=== PATIENT | female | born 1955 | race Caucasian/White ===

== ENCOUNTER 2018-12-14 16:13 | Inpatient (IN) | payer MEDICAID ==
[~2018-12-14] VITALS: Ht 165.1 cm; Wt 59.4 kg
[2018-12-14 16:37] VITALS: Ht 165.1 cm; Wt 59.4 kg
[2018-12-14 18:23] LABS: ALKALINE PHOSPHATASE 94 U/L (46-116); ALT/SGPT 47 U/L (14-59); AST/SGOT 130 U/L (15-37); BILIRUBIN TOTAL 0.62 mg/dL (0.20-1.00); CALCIUM 7.5 mg/dL (8.5-10.1); CHLORIDE SERUM 89 mmol/L (98-107); CREATININE SERUM 3.9 mg/dL (0.6-1.0); GFR1 12 mL/min; SODIUM SERUM 131 mmol/L (136-145)
[2018-12-14 18:24] LABS: ALBUMIN 2.6 g/dL (3.4-5.0); TOTAL PROTEIN, SERUM 5.4 g/dL (6.4-8.2)
[2018-12-14 18:49] LABS: PLATELET COUNT 268 x10^3mcL (130-400)
[2018-12-14 19:05] LABS: CARBON DIOXIDE 6.4 mmol/L (21-32)
[2018-12-14 19:06] LABS: GLUCOSE SERUM 1094 mg/dL (74-106)
[2018-12-14 19:29] LABS: BAND NEUTROPHIL 11 % (0-10); MONOCYTE 5 % (0-7); SEGMENTED NEUTROPHILS 78 % (37-75)
[2018-12-14 19:31] LABS: rbc morphology (normal/abnorm) ABNORMAL (NORMAL)
[2018-12-14 19:34] LABS: PLATELET MORPHOLOGY PLATELETS NORMAL; burr cell (echinocyte) 1+
[2018-12-14 20:53] LABS: FREE T4 1.14 ng/dL (0.76-1.46); FREE THYROXINE INDEX 2.3 ug/dL (1.4-4.5)
[2018-12-14 20:55] LABS: T3 TOTAL 0.68 ng/mL
[2018-12-14 21:12] LABS: MAGNESIUM 2.8 mg/dL (1.8-2.4)
[2018-12-14 21:29] LABS: CHOLESTEROL/HDL RATIO 2.9; PHOSPHOROUS 12.7 mg/dL (2.5-4.9)
[2018-12-14 22:00] LABS: microscopic required? NO
[2018-12-14 22:11] LABS: UA SPECIFIC GRAVITY 1.015 (1.005-1.035); urine erythrocyte NEGATIVE (NEGATIVE)
[2018-12-14 22:25] LABS: CALCIUM 6.8 mg/dL (8.5-10.1); CREATININE SERUM 3.6 mg/dL (0.6-1.0); POTASSIUM SERUM 4.6 mmol/L (3.5-5.1)
[2018-12-14 22:30] LABS: AMPHETAMINE QUAL UR NONE DETECTED (See below)
[2018-12-15 00:55] LABS: PLATELET COUNT 261 x10^3mcL (130-400)
[2018-12-15 01:00] LABS: RED CELL DISTRIBUTION WIDTH 16.4 % (11.5-14.5)
[2018-12-15 01:04] LABS: CALCIUM 6.9 mg/dL (8.5-10.1); CARBON DIOXIDE 15.9 mmol/L (21-32); CREATININE SERUM 3.5 mg/dL (0.6-1.0); MAGNESIUM 2.1 mg/dL (1.8-2.4); PHOSPHOROUS 7.5 mg/dL (2.5-4.9)
[2018-12-15 01:16] LABS: BAND NEUTROPHIL 4 % (0-10); MONOCYTE 2 % (0-7); SEGMENTED NEUTROPHILS 84 % (37-75)
[2018-12-15 01:17] LABS: PLATELET MORPHOLOGY PLATELETS NORMAL; rbc morphology (normal/abnorm) ABNORMAL (NORMAL)
[2018-12-15 04:56] LABS: PLATELET COUNT 251 x10^3mcL (130-400)
[2018-12-15 05:00] LABS: RED CELL DISTRIBUTION WIDTH 15.5 % (11.5-14.5)
[2018-12-15 05:01] LABS: BAND NEUTROPHIL 4 % (0-10); MONOCYTE 2 % (0-7); PLATELET MORPHOLOGY PLATELETS NORMAL; SEGMENTED NEUTROPHILS 84 % (37-75); rbc morphology (normal/abnorm) ABNORMAL (NORMAL)
[2018-12-15 05:04] LABS: CALCIUM 6.6 mg/dL (8.5-10.1); CARBON DIOXIDE 22.1 mmol/L (21-32); CREATININE SERUM 3.2 mg/dL (0.6-1.0); MAGNESIUM 1.9 mg/dL (1.8-2.4); PHOSPHOROUS 5.1 mg/dL (2.5-4.9); POTASSIUM SERUM 3.5 mmol/L (3.5-5.1)
[2018-12-15 07:57] LABS: CALCIUM 6.7 mg/dL (8.5-10.1); CARBON DIOXIDE 22.5 mmol/L (21-32); MAGNESIUM 1.9 mg/dL (1.8-2.4); PHOSPHOROUS 4.6 mg/dL (2.5-4.9); POTASSIUM SERUM 3.4 mmol/L (3.5-5.1)
[2018-12-15] MEDS ORDERED: GABAPENTIN800 M1 PO (08:38)
[2018-12-15] MEDS ORDERED: LIPI20 PO (08:38)
[2018-12-15] MEDS ORDERED: ASPIR LOW81 MG (08:38)
[2018-12-15] MEDS ORDERED: ZESTRIL5 MG PO (08:39)
[2018-12-15] MEDS ORDERED: LEVOTHYROXINE0.05 M2 PO (08:39)
[2018-12-15] MEDS ORDERED: CELEBREX200 MG PO (08:39)
[2018-12-15] MEDS ORDERED: HUMALOG100 UNIT/1 SQ (08:40)
[2018-12-15] MEDS ORDERED: LANTUS SOLOS100 U/M1 (08:40)
[2018-12-15 09:18] VITALS: BP 116/55
[2018-12-15 12:10] VITALS: BP 99/55
[2018-12-15 12:10] LABS: CALCIUM 6.5 mg/dL (8.5-10.1); CARBON DIOXIDE 26.1 mmol/L (21-32); CREATININE SERUM 2.6 mg/dL (0.6-1.0); MAGNESIUM 1.7 mg/dL (1.8-2.4); PHOSPHOROUS 4.3 mg/dL (2.5-4.9); POTASSIUM SERUM 3.5 mmol/L (3.5-5.1)
[2018-12-15 14:39] VITALS: BP 99/55
[2018-12-15 16:23] VITALS: BP 112/51
[2018-12-15 17:22] LABS: CALCIUM 6.5 mg/dL (8.5-10.1); CARBON DIOXIDE 25.7 mmol/L (21-32); CREATININE SERUM 2.4 mg/dL (0.6-1.0); MAGNESIUM 2.3 mg/dL (1.8-2.4); PHOSPHOROUS 3.7 mg/dL (2.5-4.9); POTASSIUM SERUM 3.3 mmol/L (3.5-5.1)
[2018-12-15 19:30] VITALS: BP 104/46
[2018-12-15 20:27] LABS: CALCIUM 6.7 mg/dL (8.5-10.1); CREATININE SERUM 2.2 mg/dL (0.6-1.0); PHOSPHOROUS 3.4 mg/dL (2.5-4.9); POTASSIUM SERUM 3.8 mmol/L (3.5-5.1)
[2018-12-16 00:30] VITALS: BP 118/59
[2018-12-16 02:37] LABS: CALCIUM 6.7 mg/dL (8.5-10.1); CARBON DIOXIDE 20.3 mmol/L (21-32); CREATININE SERUM 2.2 mg/dL (0.6-1.0); POTASSIUM SERUM 3.8 mmol/L (3.5-5.1)
[2018-12-16 02:56] LABS: PLATELET COUNT 164 x10^3mcL (130-400)
[2018-12-16 03:07] LABS: BAND NEUTROPHIL 3 % (0-10); MONOCYTE 5 % (0-7); SEGMENTED NEUTROPHILS 85 % (37-75)
[2018-12-16 03:10] LABS: PLATELET MORPHOLOGY PLATELETS NORMAL; rbc morphology (normal/abnorm) ABNORMAL (NORMAL)
[2018-12-16 04:05] VITALS: BP 107/54
[2018-12-16 08:15] VITALS: BP 109/66
[2018-12-16 17:00] VITALS: BP 110/56
[2018-12-16 20:32] VITALS: BP 121/68
[2018-12-17 05:27] VITALS: BP 111/58
[2018-12-17 06:24] LABS: CALCIUM 7.4 mg/dL (8.5-10.1); CARBON DIOXIDE 20.6 mmol/L (21-32); CREATININE SERUM 1.3 mg/dL (0.6-1.0); POTASSIUM SERUM 3.4 mmol/L (3.5-5.1)
[2018-12-17 07:27] LABS: BASOPHIL % 0.3 % (0-2)
[2018-12-17 07:39] LABS: PLATELET COUNT 110 x10^3mcL (130-400); RED CELL DISTRIBUTION WIDTH 16.1 % (11.5-14.5)
[2018-12-17 09:14] VITALS: BP 109/63
[2018-12-17 12:19] VITALS: BP 100/52
[2018-12-17 17:29] VITALS: BP 127/70
[2018-12-17 21:15] VITALS: BP 120/66
[2018-12-18 05:09] VITALS: BP 132/73
[2018-12-18 07:00] LABS: CALCIUM 7.7 mg/dL (8.5-10.1); CARBON DIOXIDE 24.1 mmol/L (21-32); CREATININE SERUM 1.1 mg/dL (0.6-1.0); MAGNESIUM 1.9 mg/dL (1.8-2.4); PHOSPHOROUS 1.7 mg/dL (2.5-4.9); POTASSIUM SERUM 3.6 mmol/L (3.5-5.1)
[2018-12-18 08:25] VITALS: BP 121/63
[2018-12-18 08:58] LABS: BASOPHIL % 0.4 % (0-2)
[2018-12-18 09:01] LABS: PLATELET COUNT 98 x10^3mcL (130-400); RED CELL DISTRIBUTION WIDTH 15.6 % (11.5-14.5)
[2018-12-18 09:05] VITALS: BP 141/60
[2018-12-18 13:32] VITALS: BP 121/63
[2018-12-18 17:08] VITALS: BP 106/51
[2018-12-18 18:05] VITALS: BP 106/51
[2018-12-18] MEDS ORDERED: HEP5I IV (18:20)
== END 2018-12-18 19:46 | disposition short-term general hospital (02) | DRG 190 ==
LOC: ED 16:13 → IC 20:18 → DU 20:18 → IC 12-15 08:49 → DU 12-16 16:42
PROVIDERS: Emergency Medicine; ADMIT Internal Medicine
PROC: 05HM33Z Insertion of Infusion Device into Right Internal Jugular Vein, Percutaneous Approach (ICD-10-PCS; principal; 2018-12-14)
PROC: B543ZZA Ultrasonography of Right Jugular Veins, Guidance (ICD-10-PCS; 2018-12-14)
DX: I21.4 Non-ST elevation (NSTEMI) myocardial infarction (principal); J96.01 Acute respiratory failure with hypoxia; N17.0 Acute kidney failure with tubular necrosis; E43 Unspecified severe protein-calorie malnutrition; E11.10 Type 2 diabetes mellitus with ketoacidosis without coma; E83.39 Other disorders of phosphorus metabolism; I36.1 Nonrheumatic tricuspid (valve) insufficiency; E83.51 Hypocalcemia; E11.65 Type 2 diabetes mellitus with hyperglycemia; E87.0 Hyperosmolality and hypernatremia; E87.2 Acidosis; I25.5 Ischemic cardiomyopathy; I10 Essential (primary) hypertension; D72.829 Elevated white blood cell count, unspecified; R74.0 Nonspecific elevation of levels of transaminase and lactic acid dehydrogenase [LDH]; E78.5 Hyperlipidemia, unspecified; D64.9 Anemia, unspecified; I25.10 Atherosclerotic heart disease of native coronary artery without angina pectoris; F17.200 Nicotine dependence, unspecified, uncomplicated; Z79.84 Long term (current) use of oral hypoglycemic drugs; Z91.14 Patient's other noncompliance with medication regimen
CPT/HCPCS: 36600; 82962; 84439; J0610; J0696; J1644; J1815; J2543; J3370; J3475; J3480; J3490; J7030; J7050; J7620; Q0092; Q0163

== ENCOUNTER 2019-01-08 14:19 | Emergency (ER) | payer MEDICAID ==
[~2019-01-08] VITALS: Ht 170.2 cm; Wt 56.7 kg
[~2019-01-08 14:19] MED LIST: ASPIR LOW81 MG; CELEBREX200 MG PO; GABAPENTIN800 M1 PO; HEP5I IV; HUMALOG100 UNIT/1 SQ; LANTUS SOLOS100 U/M1; LEVOTHYROXINE0.05 M2 PO; LIPI20 PO; ZESTRIL5 MG PO
[2019-01-08 14:22] VITALS: Ht 170.2 cm; Wt 56.7 kg
--- NOTE | 2019-01-08 14:30 | NUR ---
PATIENT BIBA FOR ALOC. PER MEDIC, BS READING WAS "HI". PATIENT DOES HAVE HISTORY OF DM. ARRIVED AT BEDSIDE AND IS SEEN YELLING BUT NOT RESPONDING TO QUESTIONS. PATIENT IS IN LABORED BREATHING, FRUITY BREATH CAN BE SMELLED WHEN PATIENT IS BREATHING. AWAITING MSE
--- NOTE | 2019-01-08 14:56 | NUR ---
DR GRANADO AT BEDSIDE FOR MD CLARK.
--- NOTE | 2019-01-08 15:29 | NUR ---
CALLED PHARMACY FOR SODIUM BICARB. JUWAN IS OUT. PHARMACY TO BRING
--- NOTE | 2019-01-08 15:30 | NUR ---
LAB AT BEDSIDE
--- NOTE | 2019-01-08 15:30 | NUR ---
INSULIN 12UNITS IV GIVEN AND WILL REASSES BS
[2019-01-08 16:01] LABS: microscopic required? YES; urine erythrocyte TRACE (NEGATIVE)
[2019-01-08 16:22] LABS: AMPHETAMINE QUAL UR NONE DETECTED (See below)
[2019-01-08 16:27] LABS: PLATELET COUNT 407 x10^3mcL (130-400); RED CELL DISTRIBUTION WIDTH 18.3 % (11.5-14.5)
[2019-01-08 16:57] LABS: BAND NEUTROPHIL 6 % (0-10); BASOPHIL 0 % (0-2); MONOCYTE 3 % (0-7); SEGMENTED NEUTROPHILS 87 % (37-75)
[2019-01-08 17:01] LABS: rbc morphology (normal/abnorm) NORMAL (NORMAL)
[2019-01-08 17:54] LABS: HDL CHOLESTEROL 55 mg/dL (40-60); MAGNESIUM 2.4 mg/dL (1.8-2.4); T4(THYROXINE) 4.3 ug/dL (4.7-13.3)
--- NOTE | 2019-01-08 17:54 | NUR ---
PT STS "IT HURTS IT HURTS". PATIENT IS NOW ABLE TO ANSWER QUESTIONS. MOTHER AT BEDSIDE. MOTHER IS SEEN TELLING THE PATIENT TO BE SILENT, AND PATIENT HAS COMPLIED WITH MOTHER'S COMMANDS. PATIENT IS SEEN BREATHING LABORED, FRUITY BREATH CAN BE SMELLED. PATIENT COVERED IN CARLOS ENRIQUE HUGGER AND WITH MULTIPLE BLANKETS TO INCREASE PATIENT TEMPERATURE.
[2019-01-08 17:59] LABS: CALCIUM 7.8 mg/dL (8.5-10.1)
[2019-01-08 18:01] LABS: ALKALINE PHOSPHATASE 110 U/L (46-116); ALT/SGPT 48 U/L (14-59); AST/SGOT 115 U/L (15-37); BILIRUBIN TOTAL 0.41 mg/dL (0.20-1.00); CHLORIDE SERUM 100 mmol/L (98-107); CREATININE SERUM 2.5 mg/dL (0.6-1.0); GFR1 21 mL/min; POTASSIUM SERUM 4.7 mmol/L (3.5-5.1); SODIUM SERUM 138 mmol/L (136-145)
[2019-01-08 18:02] LABS: ALBUMIN 3.1 g/dL (3.4-5.0); TOTAL PROTEIN, SERUM 6.1 g/dL (6.4-8.2)
[2019-01-08 18:15] LABS: CHOLESTEROL 179 mg/dL (<200)
[2019-01-08 18:22] LABS: CARBON DIOXIDE 3.6 mmol/L (21-32)
--- NOTE | 2019-01-08 18:22 | NUR ---
PER LAB, WHEN ASKED ABOUT BLOOD SUGAR LEVELS, [facility] STS STILL PENDING SOME LABS INCLUDING BLOOD SUGAR
--- NOTE | 2019-01-08 18:30 | NUR ---
PATIENT STS SHE IS CURRENTLY IN NO PAIN. PATIENT IS ANSWERING QUESTIONS IN COMPLETE SENTENCES. PATIENT CURRENTLY STILL HAS LABORED BREATHING, WITH BILATERAL CHEST RISE.
[2019-01-08 18:35] LABS: GLUCOSE SERUM 946 mg/dL (74-106)
--- NOTE | 2019-01-08 18:45 | NUR ---
PER OK TO INCREASE INSULIN DRIP TO 8 UNITS PER HOUR. RUNNING AT 8 ML/HR
--- NOTE | 2019-01-08 18:49 | NUR ---
PT RESTING AT BEDSIDE IN NAD
--- NOTE | 2019-01-08 19:17 | NUR ---
REPORT OFF TO TIANA BEAR
--- NOTE | 2019-01-08 19:20 | NUR ---
REPORT RECEIVED FROM SOCRATES RN TO ASSUME CARE OF PT. DR MAJANO NOTED CURRENT BS READING. NO CHANGE TO INSULIN RATE AT THIS TIMES. FLUIDS RUNNING ACCORDINGLY.
--- NOTE | 2019-01-08 19:50 | NUR ---
EDUCATED DR GRANADO OF TEMP 99.5 WITH THERMO CONTROL. OK PER MD FRAUSTO TO DISCONTINUE WARMING MEASURES.
[2019-01-08 21:34] LABS: CALCIUM 7.4 mg/dL (8.5-10.1); CARBON DIOXIDE 10.8 mmol/L (21-32); CREATININE SERUM 2.1 mg/dL (0.6-1.0); POTASSIUM SERUM 3.2 mmol/L (3.5-5.1)
[2019-01-08 21:39] LABS: BILIRUBIN TOTAL 0.21 mg/dL (0.20-1.00)
[2019-01-08 21:40] LABS: ALBUMIN 2.7 g/dL (3.4-5.0); TOTAL PROTEIN, SERUM 5.5 g/dL (6.4-8.2)
--- NOTE | 2019-01-08 22:01 | NUR ---
DR ELIZABETH NOTIFIED OF INCREASING TEMPERATURE. LACK OF URINE OUTPUT AFTER FLUIDS. ORDER FOR HUMPHREYS TO BE PLACED. PT TOLERATED PROCEDURE WELL. URINE COLLECTED AND SENT TO LAB. PT TURNED AND SKIN CHECKED. POSTIONED FOR COMFORT. FAMILY AT BEDSIDE. WILL CONTINUE TO MONITOR
[2019-01-08 22:50] LABS: UA SPECIFIC GRAVITY 1.015 (1.005-1.035); microscopic required? YES; urine erythrocyte 2+ (NEGATIVE)
--- NOTE | 2019-01-09 00:01 | NUR ---
MEDICATION GIVEN PER PROTOCAL. NO S/S OF DISTRESS. PT EXPRESSED PAIN 06/14. PT NOTED TO HAVE TRISHA EDUCTED DR CAICEDO OF FINDINGS
--- NOTE | 2019-01-09 00:59 | NUR ---
REPORT GIVEN TO [facility] TO ASSUME CARE OF PT. MOTHER AT BEDSIDE. PT VERBALIZED NAUSEA HAS SUBSIDED. RESPIRATIONS ARE EVEN AND UNLABORDED. VITALS STABLE. NO S/S OF DISTRESS. SKIN WARM AND DRY. WILL CONTINUE TO MONITOR AND AWAIT TRANSPORT
--- NOTE | 2019-01-09 01:06 | NUR ---
BS 82. INSULIN STOPPED PER PROTOCAL. DR ELIZABETH NOTIFIED.
--- NOTE | 2019-01-09 01:28 | NUR ---
NEW FLUIDS STARTED PER MD ORDER. PT SITTING UPRIGHT NO S/S OF DISTRESS VITALS STABLE. MOTHER AT BEDSIDE
--- NOTE | 2019-01-09 01:42 | NUR ---
REPORT GIVEN TO [facility] FOR CRITICAL CARE TRANSPORT TEAM
[2019-01-09 02:07] VITALS: BP 122/57
== END 2019-01-09 02:07 | disposition short-term general hospital (02) ==
LOC: ED 14:19 → IC 15:31 → ED 01-09 02:07
PROVIDERS: Emergency Medicine
DX: E11.10 Type 2 diabetes mellitus with ketoacidosis without coma (principal); G93.41 Metabolic encephalopathy; D72.825 Bandemia; I21.4 Non-ST elevation (NSTEMI) myocardial infarction; Z95.1 Presence of aortocoronary bypass graft; E46 Unspecified protein-calorie malnutrition; I45.10 Unspecified right bundle-branch block; F17.210 Nicotine dependence, cigarettes, uncomplicated; I10 Essential (primary) hypertension; E11.9 Type 2 diabetes mellitus without complications; Z98.890 Other specified postprocedural states; Z88.0 Allergy status to penicillin; Z88.1 Allergy status to other antibiotic agents; Z88.6 Allergy status to analgesic agent
CPT/HCPCS: 36600; 82962; 87804; 99406; G0480; J1644; J1815; J1885; J1956; J2405; J3480; J3490; J7030

== ENCOUNTER 2019-01-11 10:35 | Inpatient (IN) | payer MEDICAID ==
[~2019-01-11] VITALS: Ht 165.1 cm; Wt 58.2 kg
[2019-01-11 10:56] VITALS: Ht 165.1 cm; Wt 58.2 kg
[2019-01-11] MEDS ORDERED: ASPIRIN ADULT L81 M5 (15:26)
[2019-01-11] MEDS ORDERED: PROTONIX20 MG (15:26)
[2019-01-11] MEDS ORDERED: CARVEDILOL3.125 M1 (15:27)
[2019-01-11] MEDS ORDERED: LANTUS SOLOS100 U/M1 (15:27)
[2019-01-11] MEDS ORDERED: HUMALOG100 UNIT/1 (15:27)
[2019-01-11] MEDS ORDERED: LIPITOR40 MG PO (15:28)
[2019-01-11] MEDS ORDERED: CITALOPRAM HYDR10 M1 PO (15:29)
[2019-01-11] MEDS ORDERED: PLA75 PO (15:29)
[2019-01-11] MEDS ORDERED: GABAPENTIN800 M1 PO (15:29)
[2019-01-11] MEDS ORDERED: SYNTHROID0.05 MG PO (15:30)
[2019-01-11] MEDS ORDERED: TRA50 PO (15:30)
[2019-01-11 16:09] LABS: BASOPHIL % 0.7 % (0-2); PLATELET COUNT 270 x10^3mcL (130-400); RED CELL DISTRIBUTION WIDTH 16.4 % (11.5-14.5)
[2019-01-11 16:12] LABS: PHOSPHOROUS 3.8 mg/dL (2.5-4.9)
[2019-01-11 16:18] VITALS: BP 108/57
[2019-01-11 16:22] LABS: CALCIUM 8.3 mg/dL (8.5-10.1); CARBON DIOXIDE 23.6 mmol/L (21-32); CREATININE SERUM 1.3 mg/dL (0.6-1.0); POTASSIUM SERUM 3.8 mmol/L (3.5-5.1)
[2019-01-11 18:36] LABS: UA SPECIFIC GRAVITY <=1.005 (1.005-1.035); microscopic required? YES; urine erythrocyte 1+ (NEGATIVE)
[2019-01-11 20:35] VITALS: BP 107/45
[2019-01-12 05:24] LABS: PLATELET COUNT 216 x10^3mcL (130-400)
[2019-01-12 05:25] LABS: BASOPHIL % 1.2 % (0-2)
[2019-01-12 05:32] LABS: CALCIUM 8.4 mg/dL (8.5-10.1); CARBON DIOXIDE 26.8 mmol/L (21-32); CREATININE SERUM 1.2 mg/dL (0.6-1.0); PHOSPHOROUS 3.8 mg/dL (2.5-4.9); POTASSIUM SERUM 3.6 mmol/L (3.5-5.1)
[2019-01-12 06:03] VITALS: BP 110/46
[2019-01-12 09:12] VITALS: BP 101/43
[2019-01-12 12:38] VITALS: BP 105/45
[2019-01-12 15:51] VITALS: BP 101/45
== END 2019-01-12 16:04 | disposition home or self-care (01) | DRG 349 ==
LOC: ED 10:35 → MU 14:51 → DU 14:51 → MU 15:59 → DU 17:14
PROVIDERS: ADMIT Family Medicine
PROC: 0SWBXJZ Revision of Synthetic Substitute in Left Hip Joint, External Approach (ICD-10-PCS; principal; 2019-01-11)
DX: T84.021A Dislocation of internal left hip prosthesis, initial encounter (principal); I21.A9 Other myocardial infarction type; E11.649 Type 2 diabetes mellitus with hypoglycemia without coma; E11.65 Type 2 diabetes mellitus with hyperglycemia; T84.127A Displacement of internal fixation device of bone of left lower leg, initial encounter; I10 Essential (primary) hypertension; E03.9 Hypothyroidism, unspecified; E78.00 Pure hypercholesterolemia, unspecified; F17.210 Nicotine dependence, cigarettes, uncomplicated; Z68.23 Body mass index [BMI] 23.0-23.9, adult; Z79.4 Long term (current) use of insulin; Z95.1 Presence of aortocoronary bypass graft; Z95.5 Presence of coronary angioplasty implant and graft; Z79.02 Long term (current) use of antithrombotics/antiplatelets; Z79.82 Long term (current) use of aspirin; Z96.642 Presence of left artificial hip joint; Y79.2 Prosthetic and other implants, materials and accessory orthopedic devices associated with adverse incidents; Y92.009 Unspecified place in unspecified non-institutional (private) residence as the place of occurrence of the external cause; Y92.239 Unspecified place in hospital as the place of occurrence of the external cause
CPT/HCPCS: 82962; 83880; G0500; J1650; J2704; J3490; Q0092

== ENCOUNTER 2019-01-14 05:17 | Inpatient (IN) | payer MEDICAID ==
[~2019-01-14] VITALS: Ht 167.6 cm; Wt 49.9 kg
[~2019-01-14 05:17] MED LIST changes: +ASPIRIN ADULT L81 M5; +CARVEDILOL3.125 M1; +CITALOPRAM HYDR10 M1 PO; +HUMALOG100 UNIT/1; +LIPITOR40 MG PO; +PLA75 PO; +PROTONIX20 MG; +SYNTHROID0.05 MG PO; +TRA50 PO
--- NOTE | 2019-01-14 05:23 | NUR ---
PT BIB [facility] C/O LEFT HIP PAIN. PER MEDICS, MOM STS THAT PT GOT OUT OF BED TO USE RESTROOM AND TRIPPED OVER A BOOT, LANDING ON HER HIP. PT MOANING IN DISCOMFORT, NOT ANSWERING QUESTIONS. PER MEDIC, PT DENIES HITTING HEAD, DENIES LOC, DENIES N/V. PT SEEN HERE LAST WEEK FOR LEFT HIP DISLOCATION. PT REPORTS 10/10 SHARP NON-RADIATING PAIN TO LEFT HIP. PT AWAKE AND ALERT, RESPS E/U, NAD NOTE. CMS INTACT.
[2019-01-14 05:25] VITALS: Ht 167.6 cm; Wt 49.9 kg
--- NOTE | 2019-01-14 05:59 | NUR ---
MEDICATION ADMINISTERED PER MD ORDER
--- NOTE | 2019-01-14 06:06 | NUR ---
REPORT RECIEVED FROM LEONIDAS MONTIEL. PT AXO X 4 PT STATES SHE LIVES WITH HER MOM BECAUSE "I HAVE DIABETES AND MY BLOOD SUGAR DROPS" PT STATES THEY BOTH TAKE CARE OF EACHOTHER. PT SEEMS TO HAVE SLIGHT PAIN RELIEF WITH MEDICATION PER EMAR NO OTHER DISTRESS NOTED AT THIS TIME
--- NOTE | 2019-01-14 06:36 | NUR ---
PT TAKEN TO [facility]
--- NOTE | 2019-01-14 06:47 | NUR ---
MOTHER IS HERE FOR PT
--- NOTE | 2019-01-14 06:49 | NUR ---
PT RETURNED FROM [facility]
--- NOTE | 2019-01-14 06:52 | NUR ---
LAB AT BEDSIDE FOR BLOOD DRAW
--- NOTE | 2019-01-14 06:52 | NUR ---
MOY BERRIOS AT BEDSIDE FOR EKG
--- NOTE | 2019-01-14 07:04 | NUR ---
REPORT GIVEN TO SOCRATES MONTIEL
--- NOTE | 2019-01-14 07:09 | NUR ---
RECEIVED REPORT FROM TIANA LA
[2019-01-14 07:18] LABS: PLATELET COUNT 293 x10^3mcL (130-400)
[2019-01-14 07:36] LABS: CALCIUM 8.9 mg/dL (8.5-10.1); CARBON DIOXIDE 24.4 mmol/L (21-32); CREATININE SERUM 1.4 mg/dL (0.6-1.0); POTASSIUM SERUM 4.7 mmol/L (3.5-5.1)
[2019-01-14 07:41] LABS: BILIRUBIN TOTAL 0.58 mg/dL (0.20-1.00); TOTAL PROTEIN, SERUM 6.9 g/dL (6.4-8.2)
[2019-01-14 07:47] LABS: RED CELL DISTRIBUTION WIDTH 17.2 % (11.5-14.5)
--- NOTE | 2019-01-14 07:47 | NUR ---
PT RESTING AT BEDSIDE IN NAD. PATIENT HEARD SNORING AT BEDSIDE. RESP ARE E/U WITH BILATERAL CHEST RISE NOTED. PATIENT STS "I'M COLD". PROVIDED PATIENT WITH BLANKET. MOTHER AT BEDSIDE
--- NOTE | 2019-01-14 08:29 | NUR ---
PT RESTING AT BEDSIDE IN NAD.
[2019-01-14 09:07] LABS: BAND NEUTROPHIL 7 % (0-10); BASOPHIL 0 % (0-2); MONOCYTE 6 % (0-7); SEGMENTED NEUTROPHILS 76 % (37-75)
[2019-01-14 09:09] LABS: rbc morphology (normal/abnorm) NORMAL (NORMAL)
--- NOTE | 2019-01-14 09:38 | NUR ---
PT RESTING AT BEDSIDE IN NAD. BREATHING E/U, BILATERAL CHEST RISE. BED AT LOWEST POSITION. CALL LIGHT IN REACH.
--- NOTE | 2019-01-14 10:07 | NUR ---
APPLIED END TIDAL CO2 CAPNOGRAPHY TO PT
--- NOTE | 2019-01-14 11:27 | NUR ---
PT RESTING AT BEDSIDE IN NAD. MOTHER AT BEDSIDE. AAOX4 PERRLA, PATIENT ACTING APPROPRIATELY AND BACK AT BASELINE LEVELS.
--- NOTE | 2019-01-14 11:58 | NUR ---
ATTEMPTING TO AMBULATE PATIENT. PATIENT UNABLE TO AMBULATE OUT OF BED. DR. DIEGO NOTIFIED
--- NOTE | 2019-01-14 12:03 | NUR ---
FAMILY AT BEDSIDE
--- NOTE | 2019-01-14 12:34 | NUR ---
PT RESTING AT BEDSIDE IN NAD. BREATHING E/U, BILATERAL CHEST RISE. BED AT LOWEST POSITION.
--- NOTE | 2019-01-14 13:11 | NUR ---
PT RECIEVED FROM [facility], BROUGHT DOWN BY LUISA. PT DROWSY BUT ARROUSABLE WITH VERBAL STIMULI. SPEECH CLEAR BUT SLOW TO RESPOND. PT DENIES ANY PAIN OR RESP DISTRESS AT THIS TIME. PT ON 2 LPM O2 VIA NC, INTACT. MED SURG PT, DENIES ANY CP OR PRESSURE AT THIS TIME. IV TO RIGHT HAND 24 GUAGE, INTACT AND PATENT WITH NO REDNESS OR INFLAMMATION. BRUISING NOTED TO RIGHT INNER ANKLE, LEFT HAND, AND SCAB ON LEFT KNEE NOTED. NO PAIN REPORTED. PT NONAMBULATORY. ALL NEEDS ANTICIPATED AND FOLLOWED THROUGH.VS WNL. PT ABLE TO MAKE NEEDS KNOWN. BED IN LOW POSITION. SAFETY PRECAUTIONS IN PLACE. CALL LIGHT WITHIN REACH. WILL CONTINUE TO MONITOR.
[2019-01-14 14:00] VITALS: BP 110/40
--- NOTE | 2019-01-14 15:30 | NUR ---
PT STABLE. RESTING COMFORTABLY IN BED. NO PAIN OR DISTRESS NOTED. TOLERATING ALL CARES WELL. SAFETY PRECAUTIONS IN PLACE. CALL LIGHT WITHIN REACH. WILL CONTINUE TO MONITOR.
[2019-01-14 17:15] VITALS: BP 103/37
--- NOTE | 2019-01-14 19:33 | NUR ---
PT STABLE WITH NO PAIN OR DISTRESS NOTED. NO SOB. TOLERATED ALL CARES WELL. SAFETY PRECATIONS IN PLACE. CALL LIGHT WITHIN REACH. ENDORSED TO COGNOS BI ADMINISTRATOR.
--- NOTE | 2019-01-14 19:40 | NUR ---
RECIEVED PT IN BED, NO SIGNS OF ACUTE DISTRESS AT THIS TIME, PT A/0X4, DROWSY BUT AROUSABLE TO VERBAL STIMULI, PT HAS NO COMPLAINTS OF CHEST PAIN AT THIS TIME, PERIPHERAL PULSES PALPABLE THROUGHOUT, SWELLING TO THE LLE, LUNG SOUNDS CTA, 2L NC, TOLERATING WELL, BOWEL SOUNDS ACTIVE, ABD SOFT ROUND NONTENDER, NO COMPLAINTS OF URINARY PROBLEMS HAS NOT VOIDED SINCE ADMISSION, GENERALIZED WEAKNESS, PT HAS ECHYMOSIS TO THE RIGHT FOOT/ANKLE, AND THE RIGHT HAND, SAFETY PRECAUTIONS IN PLACE WILL CONTINUE TO MONITOR
--- NOTE | 2019-01-14 20:40 | NUR ---
PT BP 91/38, DR THOMPSON NOTIFIED, ORDERED 500ML BOLUS, INITIATED, WILL REASSES
[2019-01-14 21:45] VITALS: BP 91/38
[2019-01-14 22:10] VITALS: BP 95/36
--- NOTE | 2019-01-14 22:10 | NUR ---
PT BP 95/36, NOTIFIED DR THOMPSON, ORDERED ANOTHER 500 ML BOLUS, INITIATED WILL REASSES
[2019-01-15 00:07] VITALS: BP 103/43
--- NOTE | 2019-01-15 00:10 | NUR ---
PT BP 103/43, NOTIFIED DR THOMPSON, INSTRUCTED TO RESUME NS AT 70 ML/HOUR, WILL CONTINUE TO MONITOR
--- NOTE | 2019-01-15 02:10 | NUR ---
PT RESTING IN BED AROUSABLE TO VERBAL STIMULI, NO ACUTE DISTRESS AT THIS TIME,SAFETY PRECAUTIONS IN PLACE, WILL CONTINUE TO MONITOR.
[2019-01-15 05:10] VITALS: BP 102/45
--- NOTE | 2019-01-15 05:10 | NUR ---
PT HAD NO VOIDS DURING SHIFT, INFORMED JAY VALLES ORDERED BLADDER SCAN
--- NOTE | 2019-01-15 05:20 | NUR ---
BLADDER SCAN WAS >200ML INFORMED DR THOMPSON, SAID SHE WOULD ORDER STRAIGHT CATH, IF PT REFUSED STRAIT CATH SHE WOULD COME BY TO TALK TO PT ABOUT STARTING A HUMPHREYS
--- NOTE | 2019-01-15 05:46 | NUR ---
PT REFUSED STRAIGHT CATH, DR THOMPSON NOTIFIED, SAID SHE WOULD COME UP TO TALK TO THE PATIENT
--- NOTE | 2019-01-15 05:50 | NUR ---
PT SLEPT THROUGH MOST OF THE NIGHT AND HAD ONE COMPLAINT OF PAIN WHICH WAS MEDICATED WITH PRN NORCO PER ORDER (SEE MAR) PT HAD EPISODE OF HYPOTENSION DR THOMPSON WAS INFORMED AND HYPOTENSION WAS TREATED WITH 2 500 ML BOLUSES, PT HAD EPISODES OF UNCOOPORATION WITH CARE, PT REFUSED CATHETER INSERTION (SEE NOTES). ALL SAFETY PRECAUTIONS WERE MAINTAINED, WILL ENDORSE CARE TO DAY SHIFT RN
--- NOTE | 2019-01-15 06:40 | NUR ---
DR THOMPSON CAME TO TALK TO PT ABOUT STARTING A HUMPHREYS CATH DR THOMPSON EXPLAINED THE RISKS OF NOT PUTTING HUMPHREYS IN PT STILL REFUSED, DR THOMPSON SAID OK TO LET HER WAIT AND TRY TO GO BY HERSELF, DR HERRON ALSO NOTIFIED ASKED TO REPEAT BLADDER SCAN IN 2 HOURS.
[2019-01-15 07:25] LABS: CALCIUM 7.9 mg/dL (8.5-10.1); CARBON DIOXIDE 20.8 mmol/L (21-32); CREATININE SERUM 1.2 mg/dL (0.6-1.0); MAGNESIUM 1.9 mg/dL (1.8-2.4); PHOSPHOROUS 3.2 mg/dL (2.5-4.9); POTASSIUM SERUM 4.3 mmol/L (3.5-5.1)
--- NOTE | 2019-01-15 07:30 | NUR ---
PT IS AAOX4. GROGGY. LUNG SOUNDS CTA. ON R/A. ABDOMEN SOFT, NONTENDER, NONDISTENDED. BOWEL SOUNDS ACTIVE. SKIN CDI. PT WILLETT L LEG TRACE EDEMA DUE TO L HIP DISLOCATION. IV CATH TO R HAND, PATENT WITH FLUIDS RUNNING. SITE WNL. PT DENIES PAIN AND DISCOMFORT. CALL LIGHT WITHIN REACH.
[2019-01-15 08:27] LABS: BASOPHIL % 0.5 % (0-2); PLATELET COUNT 301 x10^3mcL (130-400)
[2019-01-15 10:01] VITALS: BP 119/52
--- NOTE | 2019-01-15 10:09 | NUR ---
NORCO 7.5 MG PO GIVEN FOR THROBBING L LEG PAIN 02/12. PT ASSISTED TO RESTROOM. URINE SAMPLE TAKEN. DUE MEDS GIVEN. PT ASSISTED BACK TO BED. BED IN LOW POSITION. CALL LIGHT WITHIN.
--- NOTE | 2019-01-15 11:39 | NUR ---
PT ABLE TO URINATE. APPROX 400 ML OUTPUT. PT DROPPED HAT IN TOILET, UNABLE TO GET URINE SPECIMEN. PT DENIES PAIN AT THIS TIME. CALL LIGHT WITHIN REACH.
--- NOTE | 2019-01-15 14:00 | NUR ---
PT IS SLEEPING BUT EASILY AROUSABLE. RESP EVEN AND UNLABORED. NO S/S OF DISTRESS NOTED. CALL LIGHT WITHIN REACH.
--- NOTE | 2019-01-15 16:01 | NUR ---
PT TAUGHT THAT URINE SAMPLE IS NEEDED AND TO URINATE IN HAT AND CALL NURSE TO GET SPECIMEN. PT VERBALIZED UNDERSTANDING. FLUIDS ENCOURAGED. DENIES PAIN. CALL LIGHT WITHIN REACH.
--- NOTE | 2019-01-15 17:05 | NUR ---
NORCO 7.5MG PO GIVEN FOR LEFT HIP PAIN, THROBBING 6/10. FLUIDS ENCOURAGED. PT ASSISTED TO BATHROOM AND BACK INTO BED. URINE SAMPLE TAKEN. CALL LIGHT WITHIN REACH. BED IN LOW POSITION.
[2019-01-15 18:32] VITALS: BP 112/44
--- NOTE | 2019-01-15 18:40 | NUR ---
PT IS AAOX4, GROGGY, FORGETFUL. RESP EVEN AND UNLABORED. NO DISTRESS NOTED. IVF RUNNING TO R HAND, SITE WNL. PT DENIES PAIN. WILL ENODORSE ALL CARE TO NOC RN.
[2019-01-15 18:43] LABS: microscopic required? NO
[2019-01-15 18:47] LABS: UA SPECIFIC GRAVITY 1.015 (1.005-1.035); urine erythrocyte NEGATIVE (NEGATIVE)
[2019-01-15 19:15] VITALS: BP 106/45
--- NOTE | 2019-01-15 19:15 | NUR ---
RECEIVED PT AWAKE ALERT AND VERBALLY RESPONSIVE.DENIES CHESTPAIN AT THIS TIME.BP 106/45 MMHG,HR 77,C/O L HIP PAIN 10/10 TO ACHING PAIN.LLE SWELLING NOTED.WILL MEDICATE ACCORDINGLY/IV TO R THUMB WITH SOME SWELLING.DISCONTINUED AND REFUSED IV REINSERTION AT THIS TIME.WILL CONTINUE TO MONITOR.
--- NOTE | 2019-01-15 21:00 | NUR ---
OFFERED IV REINSERTION AGAIN AT THIS TIME BUT STRONGLY REFUSING,INFORMED OF RISKS AND BENFITS BUT CONTINUES TO REFUSED. MADE AWARE.
--- NOTE | 2019-01-16 04:46 | NUR ---
PT SLEPT WELL ALL NIGHT.MEDICATED WITH NORCO 7.5 MG PO X2 FOR L HIP PAIN WITH GOOD RELIEF.ASSISTED TO BR AND VOIDED.WELL TOLERATED AMBULATION.AGAIN ASKED PT FOR IV REINSERTION BUT CONTINUES TO REFUSED.WILL CONTINUE TO MONITOR.
--- NOTE | 2019-01-16 05:39 | NUR ---
OFFERED TO REINSERT IV AGAIN BUT REFUSED,SIGNED REFUSAL FORM. MADE AWARE.
[2019-01-16 06:03] VITALS: BP 125/60
[2019-01-16 06:50] LABS: CALCIUM 8.1 mg/dL (8.5-10.1); CARBON DIOXIDE 24.5 mmol/L (21-32); CREATININE SERUM 1.1 mg/dL (0.6-1.0); MAGNESIUM 1.7 mg/dL (1.8-2.4); PHOSPHOROUS 2.6 mg/dL (2.5-4.9); POTASSIUM SERUM 3.8 mmol/L (3.5-5.1)
--- NOTE | 2019-01-16 07:15 | NUR ---
REPORT RCD FROM TIANA STONE. PATIENT WAKES EASILY, NO DISTRESS. BED LOW, CALL LIGHT WITHIN REACH. WILL MONITOR.
--- NOTE | 2019-01-16 07:55 | NUR ---
SHIFT ASSESSMENT PERFORMED AND DOCUMENTED. PATIENT HAS REFUSED IV ACCESS, SIGNED REFUSAL, FORM IN CHART. SITTING ON SIDE OF BED EATING BREAKFAST. REPORTS NO PAIN AT THIS TIME TO LEFT HIP. SWELLING NOTED TO LEFT FOOT AND RIGHT HAND. ON REPORT, PATIENT'S IV TO RIGHT HAND WAS PREVIOUSLY INFILTRATED AND WAS REMOVED. NO NEEDS AT THIS TIME. PATIENT REPORTS SHE WOULD LIKE TO GO HOME. HAS NOT HAD BM IN HOSPITAL. REPORTS SHE WILL NOT BE ABLE TO HAVE BM UNTIL SHE IS DISCHARGED.
[2019-01-16 09:55] VITALS: BP 138/63
[2019-01-16 09:55] LABS: BASOPHIL % 0.7 % (0-2); PLATELET COUNT 336 x10^3mcL (130-400)
--- NOTE | 2019-01-16 10:27 | NUR ---
MEDICATIONS GIVEN PER MAR. PATIENT DENIES ANY NEEDS AT THIS TIME. SITTING UP IN BED WATCHING TELEVISION. NO DISTRESS NOTED.
[2019-01-16 10:39] LABS: RED CELL DISTRIBUTION WIDTH 17.5 % (11.5-14.5)
--- NOTE | 2019-01-16 12:50 | NUR ---
PATIENT ASKING ABOUT WHEN BRACE WILL ARRIVE FOR LEFT HIP. SPOKE WITH NATACHA VIERA WHO ADVISED CASE MANAGEMENT IS WORKING ON IT, PROBABLY NOT TODAY. PATIENT INFORMED OF THIS AND STATES SHE WILL NOT STAY ANOTHER DAY. ASKED HER IF SHE WAS WILLING TO SIGN OUT AMA. PATIENT CONSIDERING THIS. AYLIN ADVISED.
--- NOTE | 2019-01-16 14:24 | NUR ---
RCD CALL FROM [employer] IN CASE MANAGEMENT THAT [facility] IS TO DELIVER ABDUCTOR BRACE TO PATIENT'S BEDSIDE AFTER 1630 TODAY. NATACHA VIERA AWARE, PER [facility]RACHITO IN CM.
--- NOTE | 2019-01-16 16:56 | NUR ---
REP [facility], AT BEDSIDE TO FIT ABDUCTOR BRACE TO PATIENT'S HIP. PATIENT MOVED IN BED AND FELT HER HIP POP AND EXPERIENCED A LOT OF PAIN. PAGED AYLIN, SUPERVISOR RIDES TO INFORM. PER AYLIN, ORDER STAT XRAY OF LEFT HIP, TELEPHONE READBACK ORDER. DR. TOMLIN HAD BEEN PAGED PRIOR TO THIS HAPPENING FOR REP TO ASK ABOUT SETTINGS FOR BRACE. DR. TOMLIN INFORMED OF SITUATION AND THAT XRAY BEING ORDERED. PATIENT GIVEN NORCO PER NOV FOR 10/10 PAIN. WILL MONITOR.
[2019-01-16 17:21] VITALS: BP 142/67
--- NOTE | 2019-01-16 17:45 | NUR ---
LEFT HIP DISLOCATED PER XRAY. CHARGE NURSE INFORMED NATACHA VIERA. SPOKE WITH DR. TOMLIN WHO IS PLANNING FOR CLOSED, POSSIBLE OPEN, REDUCTION OF LEFT HIP DISLOCATION TOMORROW AFTERNOON. CHARGE COORDINATING WITH AYLIN AND DR. TOMLIN.
--- NOTE | 2019-01-16 18:02 | NUR ---
PATIENT COMPLAINING OF PAIN FROM LEFT HIP NOT CONTROLLED WITH NORCO. AGREES FOR IV AT THIS TIME. ADAMARIS LERNER RN, ATTEMPTING TO PLACE IV.
--- NOTE | 2019-01-16 18:40 | NUR ---
RECEIVED A CALL FROM AYLIN(N.P.) AND ORDER RECEIVED TO CONSULT FOR CARDIAC CLEARANCE, EKG NOW, TROPONIN NOW AND PT/PTT TOMORROW AM. PLAN FOR PROCEDURE TOMORROW PER AYLIN'S CONVERSATION WITH .
--- NOTE | 2019-01-16 18:45 | NUR ---
SPOKE WITH PATIENT PER DR. TOMLIN'S REQUEST TO FIND OUT INFO ABOUT PREVIOUS LEFT PROSTHETIC HIP SURGERY. PATIENT HAS VERY LITTLE RECOLLECTION, THINKS IT WAS SEVERAL YEARS AGO BUT DOES NOT KNOW SURGEON'S NAME OR THE HOSPITAL.
--- NOTE | 2019-01-16 19:30 | NUR ---
RECEIVED PATIENT FROM AM RN ZELALEM. PATIENT IN SEVERE PAIN AND VERBALIZING PAIN 10/10 TO LEFT HIP, HOWEVER NORCO NOT DUE AT THIS TIME AND NO IV ACCESS. ATTEMPTS MADE TO PLACE NEW IV BUT NO UNSUCCESSFUL BY PREVIOUS RESOURCE NURSE. WILL TRY SOON. PATIENT IS ALERT AND ORIENTED TO PERSON, PLACE, TIME AND YEAR. REPORTED THAT PATIENT'S LEFT HIP WAS DISLOCATED TODAY WHEN ATTEMPTED TO PLACE BRACE. CIRCULATION REMAINS INTACT. CALL LIGHT WITHIN REACH AND WILL CONTINUE TO MONITOR. PATIENT DENIES ANY CHEST PAIN OR SHORTNESS OF BREATH.
--- NOTE | 2019-01-16 19:39 | NUR ---
REPORT GIVEN TO TIANA ROMERO. PATIENT COMPLAINING OF 10/10 PAIN TO LEFT HIP. NO IV ACCESS AT THIS POINT, ENDORSED TO COMPUTER OPERATIONS SPECIALIST PATIENT NOW WILLING TO HAVE IV PLACED FOR PAIN CONTROL OPTIONS. BRACE AT BEDSIDE. PROVIDED NICK WITH BUSINESS CARD FOR [facility] FOR POSTOP PLACEMENT. PATIENT TO HAVE SURGICAL PROCEDURE TOMORROW FOR DISLOCATED LEFT HIP IF CLEARED BY CARDIOLOGY. BED LOW, CALL LIGHT WITHIN REACH. CARE ENDORSED.
--- NOTE | 2019-01-16 19:45 | NUR ---
REPORTED CRITICAL LAB RESULT OF TROPONIN 0.[address] MACHUCA.
--- NOTE | 2019-01-16 20:31 | NUR ---
PATIENT COMPLAINING OF PAIN 10/10 TO LEFT HIP, PLACED ICE PACKS AND ADMINISTERED PAIN MEDICATION PER PATIENT'S REQUEST. IV TO LEFT HAND 24 GUAGE.
[2019-01-16 21:04] VITALS: BP 108/54
--- NOTE | 2019-01-16 21:21 | NUR ---
MORPHINE NOT EFFECTIVE; NORCO GIVEN FOR PAIN TO LEFT HIP.
--- NOTE | 2019-01-16 22:32 | NUR ---
SPOKE TO DR. MACHUCA REGARDING REBECCA AND PLAN OF CARE ENDORSED TO ME ABOUT POSSIBLE OPEN REDUCTION OF THE LEFT HIP DUE TO DISLOCATION AND ORDERS FOR EKG, TROPONIN LEVELS AND PT/PTT ORDERED. PER DR. MACHUCA, WILL PUT PATIENT BACK ON TELE MONITOR FOR TONIGHT AND PLACE ORDER FOR NPO AFTER MIDNIGHT. DR. MACHUCA ALSO AWARE THAT PATIENT IS COMPLAINING OF SEVERE PAIN, CHANGED FREQUENCY OF PAIN MEDICATION (SEE MAR).
[2019-01-17] VITALS (7 sets, daily range): BP systolic 101–153; BP diastolic 37–59
--- NOTE | 2019-01-17 01:57 | NUR ---
PT REPORTING 10/10 LEFT HIP PAIN. WILL ADMINSITER PAIN MED PER EMAR.
--- NOTE | 2019-01-17 03:40 | NUR ---
PATIENT FOUND ON FLOOR AFTER USING BEDSIDE COMMODE. PATIENT WAS TOLD BY HVAC ENGINEER TO USE CALL LIGHT WHEN SHE IS DONE USING THE BEDSIDE COMMODE. CALL LIGHT PLACED BY HER, HOWEVER PATIENT ATTEMPTED TO GET OUT OF BED AND FELL. PATIENT UNDERSTANDS AND ACKNOWLEDGES THAT SHE SHOULDVE CALLED FOR ASSISTANCE BEFORE GETTING OFF THE BEDSIDE COMMODE. NOTED SMALL SKIN TEAR TO BUTTOCK. PATIENT DENIES ANY CONFUSION, DIZZINESS. DENIES HITTING HER HEAD. STATES THAT SHE ONLY FELL ON HER BUTTOCK. PICTURE OF SKIN TEAR TO BUTTOCK TAKEN, CLEANED AND DRESSING PLACED TO PREVENT FURTHER SKIN BREAKDOWN. PATIENT DENIES ANY FURTHER HIP PAIN. VITAL SIGNS TAKEN AND REASSESSMENT COMPLETED. DR. MACHUCA MADE AWARE. PATIENT REFUSED TO USE BEDPAN AND ONLY WANTED TO USE BEDSIDE COMMODE DESPITE EDUCATION PROVIDED TO HER.
--- NOTE | 2019-01-17 04:16 | NUR ---
PT REPORTING 9/10 LEFT LOWER EXTREMITY PAIN. WILL MEDICATE MORPHINE PER EMAR.
--- NOTE | 2019-01-17 05:33 | NUR ---
BLOOD SUGAR 522, DR. BRIGETTE DELANEY.
--- NOTE | 2019-01-17 05:49 | NUR ---
CALLED DR. MACHUCA AND INFORMED HER OF PT'S BLOOD SUGAR OF 522 AND INSULIN GIVEN. INFORMED HER OF PT'S INCIDENT OF FINDING PT ON FLOOR AND EVENTS LEADING TO INCIDENT, AND SUGGESTING FOLLOW UP XRAYS. PER DR. MACHUCA SHE " WILL INFORM DAY TEAM RESIDENTS AND DR. HERRON OF INCIDENT".
--- NOTE | 2019-01-17 06:00 | NUR ---
CALLED AGAIN BRIGETTE KHAN AND FOLLOW UP IF SHE WILL SEE AND ASSESS PATIENT AFTER FALL INCIDENT THIS AM AND SHE STATED LET THE MD IN AM TO KNOW ABOUT FALL INCIDENT.PRIMARY RN MADE AWARE
--- NOTE | 2019-01-17 06:55 | NUR ---
DR. TOMLIN AT BEDSIDE ASSESSING PT, UPDATED HIM ON INCIDENT OF FINDING PT ON FLOOR AND IF HE WANTS TO ORDER ANY ADDITIONAL XRAYS, PER DR. TOMLIN NO NEED AT THIS TIME SINCE SHE ALREADY HAS A DISLOCATION AND WILL CONTINUE WITH PROCEDURE LATER.
--- NOTE | 2019-01-17 07:05 | NUR ---
PATIENT IS RESTING IN BED, SLEEPING. NO APPARENT SIGNS OF SOB OR PAIN. IV IS INFUSING NS TO THE LEFT HAND AT 70ML/HR. NO REDNESS NOTED. RESPIRATIONS EVEN NOT LABORED. NO DISTRESS NOTED. ON AIR MATRESS. CALL LIGHT WITH IN REACH. SAFETY PRECAUTIONS IN PLACE.
[2019-01-17 07:08] LABS: PLATELET COUNT 398 x10^3mcL (130-400)
[2019-01-17 07:18] LABS: CALCIUM 8.4 mg/dL (8.5-10.1); CARBON DIOXIDE 12.4 mmol/L (21-32); CREATININE SERUM 1.4 mg/dL (0.6-1.0); POTASSIUM SERUM 4.9 mmol/L (3.5-5.1)
[2019-01-17 07:21] LABS: BASOPHIL % 0 % (0-2); RED CELL DISTRIBUTION WIDTH 17.9 % (11.5-14.5)
--- NOTE | 2019-01-17 07:30 | NUR ---
GAVE REPORT TO TIANA LÓPEZ. UPDATES GIVEN, QUESTIONS ANSWERED.
--- NOTE | 2019-01-17 09:55 | NUR ---
PER DOCTOR NABOR, HOLD ALL PO MEDS DUE TO PATIENT IS NPO PENDING SX. MEDICATIONS HELD.
--- NOTE | 2019-01-17 10:32 | NUR ---
PATIENT IS RSTING COMFORTABLY IN BED, ASLEEP. NO APPARENT SIGNS OF PAIN OR SOB. RESPIRATIONS EVEN, NOT LABORED. IV CDI, NO REDNESS NOTED. SAFETY PRECAUTIONS INPLACE. RECEIVED CALL FROM MOTHER ASKING ABOUT UPDATES.
--- NOTE | 2019-01-17 11:07 | NUR ---
PATIENT IS RESTING COMFORTABLY IN BED. NO APPARENT SIGNS OF SOB, OR RESPIRATORY DISTRESS. PATIENT DENIES PAIN AT THIS TIME. NO QUESTIONS FROM THE PATIENT AT THIS TIME. PATIENT DENIES OTHER NEEDS AT THIS TIME. SAFETY PRECAUTIONS IN PLACE.
--- NOTE | 2019-01-17 13:01 | NUR ---
PATIENT WENT DOWN TO OR FOR PROCEDURE WITH OR STAFF VIA [employer]. PATIENT IS STABLE, NO APPARENT SIGNS OF SOB. CHART WENT DOWN WITH OR NURSE.
--- NOTE | 2019-01-17 15:00 | NUR ---
PATIENT BACK FROM OR. THERE IS NO INCISION OR DRESSING. IT WAS A CLOSED REDUCTION OF THE LEFT HIP JOINT. PAIN IS 3/10 AND TOLORABLE. FOLLOW UP WITH XRAY. VITAL SIGNS RECORDED. SAFETY PRECAUTIONS IN PLACE.
--- NOTE | 2019-01-17 17:36 | NUR ---
PATIENT IS RESTING COMFORTABLY IN BED, NO APPARENT SIGNS OF PAIN OR SOB. PATIENT WANT TO TAKE THE ABDUCTIN PILLOW OFF I ASKED IF SHE WOULDNT MIND KEEPING IT IN SINCE IT WILL HELP AVOID ANOTHER DISLOCATION OF THE HIP, SHE AGREED. PATIENT DENIES OTHER NEEDS AT THIS TIME. SAFETY PRECAUTIONS ARE IN PLACE.
--- NOTE | 2019-01-17 18:49 | NUR ---
PATIENT IS RESTING IN BED COMFORTABLY. NO APPARENT SIGNS OF PAIN, OR SOB. PATIENT IS STATUS POST CLOSED REDUCTION OF LEFT HIP DISLOCATION. PATIENT TLORATED WELL. CAME BACK TO THE FLOOR WITH A PAIN LEVEL OF 3/10 DUE TO MOVING AROUND. NO PAIN AT THIS TIME. PATIENT IS ON ROOM AIR. IV TO L HAND 24G. WILL ENDORSE CARE TO PHARMACEUTICAL SALES SPECIALIST NURSE.
--- NOTE | 2019-01-17 19:25 | NUR ---
RECIEVED PATIENT IN BED RELAXING, PT WAS A/0X4 NO COMPLAINTS OF WILLETT OR DIZZINESS, PT DENIES CHEST PAIN AT THIS TIME, PERIPHERAL PULSES PALPABLE THROUGH OUT SWELLING TO THE LLE, LUNG SOUNDS CTA, NO SOB AT THIS TIME, BOWEL SOUNDS ACTIVE, ABD SOFT ROUND NONTENDER, PT VOIDS FREE OF PAIN OR IRRITATION, PT IS UNABLE TO AMBULATE DUE TO BEING S/P EXTERNAL LEFT HIP REDUCTION, ABDUCTOR PILLOW IN PLACE, SAFETY PRECAUTIONS IN PLACE, WILL CONTINUE TO MONITOR.
--- NOTE | 2019-01-17 22:10 | NUR ---
PT SLEEPING IN BED COMFORTABLY, NO SIGNS OF ACUTE DISTRESS AT THIS TIME, RESPIRATIONS EVEN AND UNLABORED, SAFETY PRECAUTIONS IN PLACE, WILL CONTINUE TO MONITOR.
--- NOTE | 2019-01-18 02:05 | NUR ---
PT SLEEPING, NO SIGNS OF ACUTE DISTRESS AT THIS ITME, SAFETY PRECAUTIONS IN PLACE, BED ALARM ON, WILL CONTINUE TO MONITOR
--- NOTE | 2019-01-18 04:20 | NUR ---
CHANGED PATIENT AND REPLACE SOILED DRESSING AND APPLIED ZGUARD TO SACRAL REGION, REPLACED LINENS WITH CLEAN, SAFETY PRECAUTIONS IN PLACE WILL CONTINUE TO MONITOR.
--- NOTE | 2019-01-18 05:11 | NUR ---
PT WAS STABLE THROUGH THE NIGHT, ABD PILLOW WAS KEPT IN PLACE THROUGH THE NIGHT, PT HAD TWO EPISODES OF PAIN THAT WERE TREATED WITH PRN NORCO PER ORDER, PT SLEPT THROUGH MOST OF SHIFT SAFETY PRECAUTIONS WERE MAINTAINED, WILL CONTINUE TO MONITOR AND ENDORSE CARE
[2019-01-18 05:30] VITALS: BP 112/49
[2019-01-18 06:38] LABS: CALCIUM 8.3 mg/dL (8.5-10.1); CARBON DIOXIDE 23.2 mmol/L (21-32); CREATININE SERUM 1.2 mg/dL (0.6-1.0); POTASSIUM SERUM 3.8 mmol/L (3.5-5.1)
[2019-01-18 06:40] LABS: BASOPHIL % 0.5 % (0-2)
--- NOTE | 2019-01-18 06:40 | NUR ---
PT BLOOD SUGAR 11, RECHECKED AND IT WAS 12, REPEATED A THIRD TIME AND IT WAS 12 AGAIN, NOTIFIED DR HERRON, INITIATED D50 PROTOCAL. WILL CONTINUE TO [facility]
[2019-01-18 06:59] LABS: PLATELET COUNT 429 x10^3mcL (130-400); RED CELL DISTRIBUTION WIDTH 17.5 % (11.5-14.5)
--- NOTE | 2019-01-18 07:05 | NUR ---
RECHECKED BLOOD SUGAR, 142 NOTIFIED CHARGE NURSE
--- NOTE | 2019-01-18 07:10 | NUR ---
RECEIVED BED SIDE REPORT FROM DIE CAST DIE MAKER NURSE.PATIENT IS STABLE RESTING COMFORTABLY IN BED. PATIENT IS SITTING UP IN BED WITH ABDUCTION PILLOW BETWEEN THE LEGS. PATIENT IS STABLE, NO APPARENT SIGNS OF SOB, RESPIRATORY DISTRESS, OR PAIN, ON ROOM AIR. PATIENT DENIES PAIN AT THIS TIME. IV IS CDI, INFUSING NS AT 70ML/HR TO THE LEFT HAND. NO REDNESS NOTED. SCD,S IN PLACE QUESTIONS AND CONCERNS ADDRESSED. SAFETY PRECAUTIONS IN PLACE. BED IN LOW POSITION, BED RAILS UP X2.
--- NOTE | 2019-01-18 07:38 | NUR ---
DUNIA IS STABLE RESTING COMFORTABLY IN BED. PATIENT IS SITTING UP IN BED WITH ABDUCTION PILLOW BETWEEN THE LEGS. PATIENT IS STABLE, NO APPARENT SIGNS OF SOB, RESPIRATORY DISTRESS, OR PAIN. PATIENT DENIES PAIN AT THIS TIME. IV IS CDI, INFUSING NS AT 70ML/HR TO THE LEFT HAND. NO REDNESS NOTED. SCD,S IN PLACE QUESTIONS AND CONCERNS ADDRESSED. SAFETY PRECAUTIONS IN PLACE. BED IN LOW POSITION, BED RAILS UP X2.
--- NOTE | 2019-01-18 07:48 | NUR ---
INVENTORY CONTROL MANAGER AYLIN MADE AWARE OF MORNING GLUCOSE CHECK READING OF 12 PER GLUCOMETER. INVENTORY CONTROL MANAGER UPDATED ON MEDICATIONS GIVEN BY BOTTLE LINE WORKER. PER INVENTORY CONTROL MANAGER AYLIN CONTINUE TO MONITOR, NO FURTHER ORDERS AT THIS TIME.
--- NOTE | 2019-01-18 09:18 | NUR ---
ADMINISTERED MORNING MEDICATION. PER AYLIN HELD BP MEDS DUE TO LOW BP. PATIENT IS RESTING COMFORTABLY IN BED. NO APPARENT SIGBNS OF SOB, OR RESTLESSNESS. PATIENT HAS ABDUCTION PILLOW BETWEEN LEGS FOR LET HIP REDUCTION. PATIENT DENIES OTHER NEEDS AT THIS TIME. SAFETY PRECAUTIONS IN PLACE.
[2019-01-18 09:38] VITALS: BP 97/37
--- NOTE | 2019-01-18 10:12 | NUR ---
GRANT FROM [employer] IS HERE TO EVALUATE PATIENT FOR HIP BRACE. PATIENT IS STABLE NO SIGNS OF SOB, RESPIRATORY DISTRESS. PATIENT CO PAIN TOT HE LLE, WILL ADMINISTER MEDS PER EMAR. PATIENT QUESTIONS AND CONCERNS ADDRESSED. SAFETY PRECAUTIONS IN PLACE.
--- NOTE | 2019-01-18 13:00 | NUR ---
ADMINISTERED GLUCOSE CHECK. PATIENT TOLORATED WELL. NO APPARENT SIGNS OF SOB, OR RESPIRATORY DISTRESS. PATIENT IS WATCHING TELEVISION IN BED COMFORTABLY. PATIENT DENIES OTHER NEEDS AT THIS TIME. SAFETY PRECAUTIONS IN PLACE.
[2019-01-18 13:14] VITALS: BP 95/36
[2019-01-18 17:37] VITALS: BP 111/50
--- NOTE | 2019-01-18 19:12 | NUR ---
PATIENT IS RESTING COMFORTABLY IN BED. NO APPARENT SIGNS OF SOB, RESIRATORY DISTRESS OR PAIN AT THIS TIME. SCD'S IN PLACE. ABDUCTION PILLOW IN PLACE. PATIENT IS STABLE ON TELE 19 NSR. SKIN TEAR ON THE SACRUM COVER WITH OPTIFOAM. WILL ENDORSE CARE TO DOCK WORKER NURSE.
--- NOTE | 2019-01-18 19:20 | NUR ---
RECEIVED PT IN BED AWAKE, ALERT,ORIENTED X4. NO SOB ON ROOM AIR. W/ ABDUCTOR PILLOW IN BETWEEN LEGS. PT W/ NO C/O PAIN AT THIS TIME. W/ IVF NS AT 70 CC/HR VIA RT WRIST. CALL LIGHT W/IN REACH.
--- NOTE | 2019-01-18 21:42 | NUR ---
INFORMED DR. MACHUCA REGARDING BS=14 AND 17 (REPEATED) THEN WENT UP TO 106 AFTER 1 AMP D50 WAS GIVEN. ALSO REGARDING WF=885/37 HR=86 AND COREG NOT GIVEN.
[2019-01-18 22:19] VITALS: BP 113/37
--- NOTE | 2019-01-19 00:02 | NUR ---
PT C/O PAIN ON HER LT HIP 06/14. NORCO 7.5/325 MG PO GIVEN.
[2019-01-19 00:24] VITALS: BP 113/48
--- NOTE | 2019-01-19 00:45 | NUR ---
PT CRYING AND STILL C/O PAIN 10/10 AFTER NORCO WAS GIVEN. PT MEDICATED WITH MORPHINE SULFATE 2 MG IV. PT POSITIONED MORE COMFORTABLY.
--- NOTE | 2019-01-19 01:15 | NUR ---
PT VERBALIZED MINIMAL RELIEF OF PAIN FROM MORPHINE. WILL CONTINUE TO MONITOR.
--- NOTE | 2019-01-19 02:45 | NUR ---
PAGED DR. MACHUCA X2 TO INFORM THAT PT STILL C/O PAIN. WAITING FOR HER CALL BACK.
--- NOTE | 2019-01-19 03:00 | NUR ---
CHECKED PT AND SHE APPEARS TO BE CALM AND SLEEPING . NO C/O PAIN AT THIS TIME.
--- NOTE | 2019-01-19 04:52 | NUR ---
PT RESTING COMFORTABLY IN BED AT THIS TIME. SHE WAS MEDICATED FOR PAIN X2. ABDUCTOR PILLOW IN BETWEEN LEGS IN PLACE. NO BM NOTED THIS SHIFT. ALL NEEDS ATTENDED TO.
[2019-01-19 05:17] VITALS: BP 98/39
[2019-01-19 06:31] LABS: BASOPHIL % 0.3 % (0-2)
--- NOTE | 2019-01-19 06:42 | NUR ---
PT C/O LT HIP PAIN 06/14. NORCO 7.5/325 MG PO GIVEN.
[2019-01-19 06:49] LABS: PLATELET COUNT 567 x10^3mcL (130-400); RED CELL DISTRIBUTION WIDTH 18.7 % (11.5-14.5)
[2019-01-19 07:27] LABS: CALCIUM 9.1 mg/dL (8.5-10.1); CARBON DIOXIDE 13.9 mmol/L (21-32); CREATININE SERUM 1.5 mg/dL (0.6-1.0); POTASSIUM SERUM 4.1 mmol/L (3.5-5.1)
[2019-01-19 08:24] VITALS: BP 123/52
--- NOTE | 2019-01-19 08:38 | NUR ---
RECEIVED CALL FROM LAB RE 488 BLOOD SUGAR DRAWN AT 0617. DEBURRER AYLIN MADE AWARE. D10W STOPPED AND BS RECHACKED (360) COVERED WITH 15 UNITS HUMILIN R ORDERED. PATIENT LEFT HIP PAIN 05/15 AND RECEIVED NORCO 2 HOURS AGO FROM NOC. ALERT/ORIENTED X4. ABDUCTION PILLOW BETWEEN LEGS ON. LEE. CALL SELLERS WITHIN REACH. BED LOW AND LOCKED.
--- NOTE | 2019-01-19 10:30 | NUR ---
FAMILY MEMBERS AT BEDSIDE. KIRA SPOKESPERSON HERE AND PROVIDED HANDOUTS ON MRSA AND PICC LINE. REVIEWED ISOLATION POLICY ON MRSA AND STATED UNDERSTANDING. PT. NOT IN ANY DISTRESS.CALL SELLERS WITHIN REACH.
--- NOTE | 2019-01-19 11:03 | NUR ---
IN BED DOZING. ABDUCTION PAD IN USE. AIR MATTRESS ON AND SCD TO RIGHT LEG. CALL SELLERS WITHIN REACH.
--- NOTE | 2019-01-19 11:26 | NUR ---
Initial Nutrition Assessment- 216T/A REBECCA OLIVEIRA MR Dx: LT hip pain dislocation PMHx: Diabetes Mellitus, Hypertension, Coronary artery disease s/p CABG (DELAROSA to LAD, SVG to OM, and SVG to RCA) and known occlusion of two vein grafts., NSTEMI s/p PCI to the RCA 12/19/2018 at [facility] PSHx: CABG, Left Hip Replacement Labs: NA 133L, BG 488H, Creat 1.5H Meds: D50%, humulin, Lipitor, NS, Zofran Diet: CCHO PO Intake: 73% average (01/18) Ht:167.64 cm (66") Wt: 49.8 kg (109#) BMI: 17.8 kg/m2 (underweight) IBW: 130# (59 kg) %IBW: 84 UBW: unable to access Age: 63/F Food Allergies: NKFA Skin: abrasion to buttock/sacral area Robbie: 16 Edema: LLE GI: last BM: 01/13 Per H&P, Patient is a 62 year old female with a past medical history of diabetes, hypertension, and recent mechanical fall who presents to the ED with 1 day history of left hip pain after suffering a ground level mechanical fall. RDN visit(01/19): pt was sleepy and was not very interested in answering questions but she said that her appetite was fair. She is not willing to consume any dietary supplements at this time. Problem with: N: no V: no D: no C: no Problems with: Chewing/Swallowing: no Current appetite: fair Recent wt change: none (per pt) Vitamin/Supplement use: unable to access (pt was sleepy) Special diet at home: unable to access (pt was sleepy) Physical activity: unable to access (pt was sleepy) Education: Diet education was inappropriate at this time as patient was very sleeping and drowsy. Education will be provided during a follow up visit. Estimated Nutritional Needs Based on actual body weight 49.8 kg Energy: 5534-2000 kcal/d (30-35 kcal/kg-weight gain) Protein: 50-60 g/d (1.0-1.2 g/kg)-maintenance and preservation of lean body mass Fluid: 9388-5722 ml/d (1 ml/kcal-fluid balance) or per doctor Nutrition Diagnosis 1. Inadequate oral intake related to 'fair' appetite as evidenced by documented PO <75%. Intervention 1. Recommend continuing CCHO diet, pt refusing dietary supplements at this time. Monitor/Evaluate Goal: PO intake at least 75% of estimated needs Monitor: PO intake, Labs, GI function F/U in 3-5 days as moderate risk 01/22-
--- NOTE | 2019-01-19 11:27 | NUR ---
Recommend continuing CCHO diet, pt refusing dietary supplements at this time.
[2019-01-19 13:18] VITALS: BP 114/56
--- NOTE | 2019-01-19 13:59 | NUR ---
TURNED AND REPOSITIONED. NOTED SACRAL WOUND. DRY. APPLIED WITH OPTIFOAM. COMPLAINED OF LEFT HIP PAIN /; MORPHINE 2 MG IVP GIVEN. RESTING NOW. CALL SELLERS WITHIN REACH. BED LOW AND LOCKED.
[2019-01-19 16:19] VITALS: BP 100/44
--- NOTE | 2019-01-19 16:22 | NUR ---
CALLED AND SPOKE TO AYLIN(N.P.) AND MADE HER AWARE OF PT BLOOD SUGAR-46 AND RECHECK BLD SUGAR-51, D50 X1 PER PRN ORDER GIVEN BY NATHAN MONTIEL ASSIGNED TO THIS PT. NEW ORDER RECEIVED TO CHANGE IV RATE OF D10 AT 70ML/HR. NATHAN MONTIEL ASSIGNED TO THIS PT MADE AWARE OF ABOVE.
--- NOTE | 2019-01-19 16:53 | NUR ---
ACCU CHECK AT 1600 (46). PT. ASYMPTOMATIC. REPEAT CHECK 51 AND D50 1 AMP GIVEN IV PER PROTOCOL. SHELBY PARKS SPOKE WITH NATACHA VIERA AND MADE AWARE. D10 AT 10CC/HOUR INCREASED TO 70 CC/HR ORDERED. RECHECKED BS AT 1650: 161. WILL CONTINUE TO MONITOR.
--- NOTE | 2019-01-19 19:22 | NUR ---
REPORT GIVEN TO TIANA DANIELS. PATIENT RESTING IN BED. CALL SELLERS WITHIN REACH. BED LOW AND LOCKED.
--- NOTE | 2019-01-19 21:14 | NUR ---
PT RECIEVED AAO REG RESP NO SOB V/S STABLE,IV INFUSING WELL WITH THE SITE PATENT AND INTACT,PT HAS DRESSING TO THE LT HIP WITH SITE PATENT AND INTACT,PT HAS ABDUCTION PILLOW PULSES TO BLLE WEAK SENSATION WNL,HOB,KEPT CLEAN AND DRY TO TOUCH,BED IN THE LOW POSITION AND LOCKED,MADE COMFORTABLE IN BED AND WILL CONTINUE TO MONITOR.
[2019-01-19 22:11] VITALS: BP 101/35
--- NOTE | 2019-01-19 22:20 | NUR ---
MADE DR MACHUCA AWARE PATIENT BLOOD GLUCOSE IN 418 AND WAS GIVEN 18 UNIT REG INSULIN AND WILL REPEATED IN AFTER HOURS BLOOD GLUCOSE WAS 401,SAYS WILL CHANGE THE IV FULIDS AND WILL CONTINUE TO MONITOR.
--- NOTE | 2019-01-20 01:18 | NUR ---
PT SITTING UP ON THE BED WATCHING TV FINGER STICK CHECKED 122,WILL CONTINUE TO MONITOR.
--- NOTE | 2019-01-20 01:50 | NUR ---
PT CLEAN AND WAS MADE COMFORTABLE IN BED,WILL CONTINUE TO MONITOR.
--- NOTE | 2019-01-20 02:00 | NUR ---
PT WITH C/O OF PAIN TO THE SURGICAL SITE PATIENT WAS GIVEN 2 MG IV MORHINE ORDER AND WILL CONTINUE TO MONITOR.
[2019-01-20 06:01] VITALS: BP 95/38
--- NOTE | 2019-01-20 06:13 | NUR ---
PT WITH C/O OF PAIN WAS MEDICATED WITH MORPHINE 2 MG IV ORDER,KEPT CLEAN AND DRY TO TOUCH AND WILL CONTINUE TO MONITOR.
[2019-01-20 06:22] LABS: BASOPHIL % 0.5 % (0-2)
[2019-01-20 06:23] LABS: PLATELET COUNT 613 x10^3mcL (130-400); RED CELL DISTRIBUTION WIDTH 18.4 % (11.5-14.5)
[2019-01-20 07:17] LABS: CALCIUM 8.8 mg/dL (8.5-10.1); CARBON DIOXIDE 23.8 mmol/L (21-32); CREATININE SERUM 1.1 mg/dL (0.6-1.0); POTASSIUM SERUM 4.1 mmol/L (3.5-5.1)
--- NOTE | 2019-01-20 07:20 | NUR ---
RECEIVED PT FROM COMMERCIAL REAL ESTATE PARALEGAL RN. Hunter/MIKAELA. TELE#19. DENIES CHEST PAIN/PRESSURE. RESPIRATIONS EQUAL AND UNLABORED ON RA. NO ACUTE RESP DISTRESS NOTED. PT C/O PAIN TO LT HIP 02/12. WILL MEDICATE PER EMAR. ABDUCTION PILLOW IN PLACE. AIR MATTRESS IN PLACE. SKIN TEAR TO SACRUM COVERED WITH OPTIFOAM DRESSING, DRESSING CDI. IV PATENT AND INFUSING TO RH. NO REDNESS OR SWELLING NOTED. WILL CONTINUE TO MONITOR. CALL LIGHT IN REACH. BED IN LOWEST POSITION.
[2019-01-20 08:00] VITALS: BP 106/41
--- NOTE | 2019-01-20 09:04 | NUR ---
PT SITTING UP AT BEDSIDE. NO ACUTE RESP DISTRES NOTED ON RA. ENCOURAGED PT SHE NEEDS TO BE BACK IN BED WITH ABDUCTOR PILLOW IN PLACE TO PREVENT DISLOCATION OF LT HIP AGAIN. PT VERBALIZED UNDERSTANDING. ASSISTED BACK TO BED. ABDUCTOR PILLOW IN PLACE. PT C/O PAIN 10/ TO LT HIP. MEDICATED PER EMAR. GIVEN PO MEDS. TOLERATED WELL. PT CRYING FROM PAIN. DEEP BREATHING AND RELAXATION TECHNIQUES USED. CALL LIGHT IN REACH. BED IN LOWEST POSITION.
--- NOTE | 2019-01-20 10:37 | NUR ---
PT SITTING UP IN BED. NO ACUTE RESP DISTRESS NOTED ON RA. PT C/O PAIN 06/14 TO LT HIP. MEDICATED PER EMAR. IV TO RW FLUSHED WELL. NO REDNESS OR SWELLING NOTED. ABDUCTOR PILLOW IN PLACE. WILL CONTINUE TO MONITOR. CALL LIGHT IN REACH. BED IN LOWEST POSITION.
--- NOTE | 2019-01-20 11:16 | NUR ---
PT STILL FEELING ITCH. RIGHT HAND SWALLON. PHOTO TAKEN AND PLACED IN CHART. SPOKE WITH AYLIN MANZANO INFORMED HER. PER AYLIN SWEDGER DISCONTINUE MORPHINE. AYLIN ORDERED TORADOL 30 MG IV Q6H PRN FOR PAIN, BENADRYL 25MG PO ONCE. CONFIRMED ORDERS TORB. WILL CONTINUE TO MONITOR.
--- NOTE | 2019-01-20 12:25 | NUR ---
PT SITTING UP IN BED. NO ACUTE RESP DISTRESS NOTED RA. PT STATES SHE STILL FEELS ITCHY. GIVEN BENADRYL PO. TOLERATED WELL. BLOOD SUGAR CHECKED WAS 235 GIVEN 6 UNITS OF REGULAR INSULIN PER SLIDING SCALE TO RT ARM. SPOKE WITH YULIYA FROM PHARMACY PER YULIYA TORADOL IS CONTRAINDICATED IF PT IS ALLERGIC TO IBUPROFEN. PT STATES SHE GETS ITCHY WITH IBUPROFEN. PER REJI MEDICATION CAN BE VERIFIED IT WE HAVE A BENADRYL PRN. WILL NOTIFY HUMAN RESOURCES RECRUITER AYLIN. WILL CONTINUE TO MONITOR. CALL LIGHT IN REACH. BED IN LOWEST POSITION.
[2019-01-20 12:34] VITALS: BP 90/36
--- NOTE | 2019-01-20 12:45 | NUR ---
SPOKE WITH AYLIN REGARDING PT ALLERGY TO IBUPROFEN. PER AYLIN D/C TORADOL AND D/C NORCO 7.5. PER AYLNI SURVEILLANCE OPERATOR ORDERED NORCO 10/325 PO Q6H PRN PAIN. CONFIRMED ORDER TORB.
--- NOTE | 2019-01-20 13:27 | NUR ---
PT IN BED RESTING. PT REMOVED ABDUCTOR PILLOW. REINFORCED TEACHING OF IMPORTANCE OF KEEPING ABDUCTOR PILLOW IN PLACE. PT VERBALIZED UNDERSTANDING. ABDUCTOR PILLOW IN PLACE. WILL CONTINUE TO MONITOR. CALL LIGHT IN REACH. BED IN LOWEST POSITION.
--- NOTE | 2019-01-20 16:42 | NUR ---
EDGAR MONTIEL ASSIGNED TO THIS PT REPORTED PT BLOOD SUGAR- AND REPEAT-59, EDGAR IS CURRENTLY ADMINISTERING D50X1 PER STANDING ORDER. CALLED AND SPOKE TO AYLIN(N.P.) AND MADE HER AWARE OF ABOVE. NEW ORDER RECEIVED TO CHANGE IVF TO D5 1/2 NS AT 50ML/HR. EDGAR MONTIEL ASSIGNED TO THIS PT MADE AWARE OF ABOVE.
--- NOTE | 2019-01-20 16:45 | NUR ---
PT SITTING UP IN BED. NO ACUTE RESP DISTRESS NOTED ON RA. PT C/O PAIN TO LT HIP 06/14. MEDICATED PER EMAR. BLOOD SUGAR CHECKED WAS 56, RECHECKED WAS 59. GIVEN D50 IVP PER PROTOCOL. CHARGE NURSE MAGALI MADE AWARE. AYLIN MANZANO NOTIFIED. RECEIVED ORDER FOR D5 1/2 NS AT 50 ML/HR. IV FLUIDS RUNNING ORDERED. WILL CONTINUE TO MONITOR.
--- NOTE | 2019-01-20 17:15 | NUR ---
RECHECKED BLOOD SUGAR WAS 152.
--- NOTE | 2019-01-20 18:01 | NUR ---
PT MOVED TO ROOM 219A. ENCOURAGED PT TO STAY IN BED AT ALL TIMES AND TO CALL WHEN NEEDING ASSISTANCE. ENCOURAGED PT TO KEEP ABDUCTOR PILLOW IN PLACE AT ALL TIMES. PT VERBALIZED UNDERSTANDING. WILL CONTINUE TO MONITOR. CALL LIGHT IN REACH. BED IN LOWEST POSITION.
--- NOTE | 2019-01-20 18:48 | NUR ---
PT SITTING UP IN BED. RESPIRATIONS EQUAL AND UNLABORED ON RA. DENIES SOB. TELE#19. PT DENIES ANY PAIN AT THIS TIME. ABDUCTOR PILLOW IN PLACE. IV TO RFA PATENT AND INFUSING. NO REDNESS OR SWELLING NOTED. WILL ENDORSE TO HEAD BUYER TOBACCO RN. CALL LIGHT IN REACH. BED IN LOWEST POSITION.
--- NOTE | 2019-01-20 19:35 | NUR ---
RECEIVED PT LAYING IN BED, NO ACUTE DISTRESS OBSERVED. C/O 2/10 PAIN TO LLE, WILL MEDICATE PRN. AA/OX4, ABLE TO MAKE NEEDS KNOWN, SPEECH CLEAR AND APPROPRIATE. NSR TO TELE #19, DENIES CP OR PRESSURE. PULSES PRESENT, L PEDAL PULSE FAINT, TRACE EDEMA TO BLE. BREATHING ON RA, EVEN AND UNLABORED, NO SOB OR DYSPNEA, LUNGS CTA. ABD ROUND AND SOFT WITH ACTIVE BOWEL SOUNDS, DENIES N/V/D. VOIDS FREELY, BEDPAN PRN. WEAKNESS TO LLE, ABDUCTOR PILLOW IN PLACE. SKIN TEAR TO SCARUM, OPTIFOAM IN PLACE, CDI. IV TO RFA IN PLACE, DRY, PATENT, INTACT, AND INFUSING IVF WELL, NO PAIN, REDNESS, OR SWELLING NOTED. COMFORT AND SAFETY MEASURES IN PLACE. BED IN LOWEST POSITION WITH SIDE RAILS UPX2 AND BED ALARM ACTIVATED. CALL LIGHT WITHIN REACH. WILL CONTINUE TO MONITOR
[2019-01-20 20:28] VITALS: BP 114/43
[2019-01-21 05:47] VITALS: BP 134/41
--- NOTE | 2019-01-21 06:22 | NUR ---
NO SIGNIFICANT CHANGES TO REPORT, PT COMPLIED WITH NURSING CARE THROUGHOUT THE SHIFT WITH NO ACUTE EVENTS OVERNIGHT. NO ACUTE DISTRESS NOTED AT THIS TIME, PT LAYING IN BED, BREATHING EVEN AND UNLABORED, AROUSABLE TO VERBAL STIMULI. COMFORT AND SAFETY MEASURES MAINTAINED. ALL NEEDS ASSESSED AND ATTENDED TO. CALL LIGHT WITHIN REACH. WILL CONTINUE TO MONITOR AND ENDORSE CARE TO DAY SHIFT NURSE
--- NOTE | 2019-01-21 07:38 | NUR ---
RECEIVED PT FROM CONDUCTOR/BRAKEMAN RN. CRISTIANE. TELE#19. DENIES CHEST PAIN/PRESSURE. RESPIRATIONS EQUAL AND UNLABORED ON RA. DENIES SOB. PT DENIES ANY PAIN AT THIS TIME. ABDUCTOR PILLOW IN PLACE. SKIN TEAR TO SACRUM COVERED WITH OPTIFOAM DRESSING, DRESSING CDI. IV TO RFA PATENT AND INFUSING. NO REDNESS OR SWELLING NOTED. SWELLING TO RIGHT HAND NOTED. WILL CONTINUE TO MONITOR. CALL LIGHT IN REACH. BED IN LOWEST POSITION.
[2019-01-21 07:52] VITALS: BP 124/56
[2019-01-21 09:06] LABS: BASOPHIL % 0 % (0-2); PLATELET COUNT 573 x10^3mcL (130-400); RED CELL DISTRIBUTION WIDTH 18.8 % (11.5-14.5)
[2019-01-21 09:08] LABS: CALCIUM 8.7 mg/dL (8.5-10.1); CREATININE SERUM 1.2 mg/dL (0.6-1.0); POTASSIUM SERUM 3.5 mmol/L (3.5-5.1)
--- NOTE | 2019-01-21 10:18 | NUR ---
PT SITTING UP IN BED. NO ACUTE RESP DISTRESS NOTED ON RA. PT C/O PAIN 06/14 TO LT HIP. MEDICATED PER EMAR. GIVEN PO MEDS. TOLERATED WELL. PT TALKING WITH MOTHER ON PHONE. ABDUCTOR PILLOW IN PLACE. WILL CONTINUE TO MONITOR. CALL LIGHT IN REACH. BED IN LOWEST POSITION.
--- NOTE | 2019-01-21 12:30 | NUR ---
PT SITTING UP IN BED WATCHING TV. RESPIRATIONS EQUAL AND UNLABORED ON RA. PT STATES PAIN IS TOLERABLE NOW. BLOOD SUGAR CHECKED WAS 363. GIVEN 15 UNITS OF REGULAR INSULIN PER SLIDING SCALE. ABDUCTOR PILLOW IN PLACE. WILL CONTINUE TO MONITOR. CALL LIGHT IN REACH. BED IN LOWEST POSITION.
[2019-01-21 12:56] VITALS: BP 120/43
--- NOTE | 2019-01-21 14:52 | NUR ---
PT SITTING UP IN BED. PT C/O PAIN 06/14 TO LT HIP. PAIN MEDICATIONS NOT DUE YET. PROVIDED COMFORT MEASURES. WILL CONTINUE TO MONITOR. CALL LIGHT IN REACH. BED IN LOWEST POSITION.
[2019-01-21 15:59] VITALS: BP 109/52
--- NOTE | 2019-01-21 16:33 | NUR ---
PT SITTING UP IN BED. PT TALKING TO DAUGHTER ON PHONE. NO ACUTE RESP DISTRESS NOTED ON RA. PT C/O PAIN 06/14 TO LT HIP. MEDICATED PER EMAR. BLOOD SUGAR CHECKED WAS 87. NO COVERAGE NEEDED. IV PATENT AND INFUSING TO RFA. NO REDNESS OR SWELLING NOTED. ABDUCTOR PILLOW IN PLACE. WILL CONTINUE TO MONITOR. CALL LIGHT IN REACH. BED IN LOWEST POSITION.
--- NOTE | 2019-01-21 18:42 | NUR ---
PT IN BED RESTING. NO ACUTE RESP DISTRESS NOTED ON RA. PT DENIES ANY PAIN AT THIS TIME. IV PATENT AND INFUSING TO RFA. NO REDNESS OR SWELLING NOTED. ABDUCTOR IN PLACE. WILL ENDORSE TO SENIOR SPEECH PATHOLOGIST RN. CALL LIGHT IN REACH. BED IN LOWEST POSITION.
--- NOTE | 2019-01-21 19:10 | NUR ---
PT FOUND TO BE OUT OF ABDUCTOR PILLOW AND SITTING UP IN BED ON LAPTOP. PT STATED, "THEY SAID I CAN KEEP IT OFF AND REST A LITTLE." PT WAS NOT AWARE HOW LONG SHE HAD BEEN OUT OF ABDUCTOR PILLOW. PT PLACED BACK IN ABDUCTOR PILLOW AND EDUCATED ON IMPORTANCE FOR NEED TO KEEP IT ON AT ALL TIMES. PT IS RESISTIVE AND UPSET. FALL PRECAUTIONS AND COMFORT MEASURES IN PLACE. CALL LIGHT WITHIN REACH. WILL CONTINUE TO MONITOR
--- NOTE | 2019-01-21 19:20 | NUR ---
RECEIVED PT LAYING IN BED, NO ACUTE DISTRESS OBSERVED. C/O 2/10 PAIN TO LLE, WILL MEDICATE PRN. AA/OX4, ABLE TO MAKE NEEDS KNOWN, SPEECH CLEAR AND APPROPRIATE. NSR TO TELE #19, DENIES CP OR PRESSURE. PULSES PRESENT, L PEDAL PULSE FAINT, TRACE EDEMA TO BLE, SWELLING TO R HAND. BREATHING ON RA, EVEN AND UNLABORED, NO SOB OR DYSPNEA, LUNGS CTA. ABD ROUND AND SOFT WITH ACTIVE BOWEL SOUNDS, DENIES N/V/D. VOIDS FREELY, BEDPAN PRN. WEAKNESS TO LLE, ABDUCTOR PILLOW IN PLACE. SKIN TEAR TO SCARUM, OPTIFOAM IN PLACE, CDI. IV TO RFA IN PLACE, DRY, PATENT, INTACT, AND INFUSING IVF WELL, NO PAIN, REDNESS, OR SWELLING NOTED. COMFORT AND SAFETY MEASURES IN PLACE. BED IN LOWEST POSITION WITH SIDE RAILS UPX2 AND BED ALARM ACTIVATED. CALL LIGHT WITHIN REACH. WILL CONTINUE TO MONITOR
[2019-01-21 21:35] VITALS: BP 124/50
--- NOTE | 2019-01-21 23:30 | NUR ---
PT REMOVED ABDUCTOR PILLOW. REINFOCRED PREVIOUS TEACHING FOR NEED TO KEEP ABDUCTOR PILLOW IN PLACE. PT CONTINUES TO BE NONCOMPLIANT AND RESISTIVE TO TEACHING. ABDUCTOR PILLOW RETURNED IN PLACE. WILL MONITOR PT CLOSELY. CALL LIGHT WITHIN REACH. WILL CONTINUE TO MONITOR
[2019-01-22 05:43] VITALS: BP 128/46
--- NOTE | 2019-01-22 05:59 | NUR ---
PT USED CALL LIGHT TO REQUEST HELP PUTTING ABDUCTOR PILLOW BACK. PT FOUND TO HAVE REMOVED IT AGAIN. PT REINFORCED FOR NEED AND IMPORTANCE TO KEEP ABDUCTOR PILLOW IN PLACE. PT ONCE AGAIN REMAINS RESISTIVE TO EDUCATION AND NONCOMPLIANT WITH CARE. ABDUCTOR PILLOW RETURNED IN PLACE. CALL LIGHT WITHIN REACH. WILL CONTINUE TO MONITOR
[2019-01-22 06:50] LABS: BASOPHIL % 0.4 % (0-2)
[2019-01-22 07:15] LABS: CALCIUM 8.5 mg/dL (8.5-10.1); CARBON DIOXIDE 23.5 mmol/L (21-32); CREATININE SERUM 1.3 mg/dL (0.6-1.0); POTASSIUM SERUM 4.1 mmol/L (3.5-5.1)
[2019-01-22 07:17] LABS: PLATELET COUNT 578 x10^3mcL (130-400); RED CELL DISTRIBUTION WIDTH 19.2 % (11.5-14.5)
--- NOTE | 2019-01-22 07:21 | NUR ---
RECEIVED REPROT FROM MARIO ALBERTO MONTIEL. PT SLEEPING COMFORTABLY IN BED WITH ABDUCTOR PILLOW IN PLACE. IV TO RFA IS PATENT AND INFUSING D5 1/2 NS @ 50 ML/HR. NO REDNESS OR PAIN. TELE # [address] NO INDICATION OF CHEST PAIN. PT ON ROOM AIR. NO DISTRESS NOTED. ALL QUESTIONS AND CONCERNS ADDRESSED.
--- NOTE | 2019-01-22 09:10 | NUR ---
IN TO SEE PATIENT AND ADMINISTER MEDICATION. PT AGITATED UPON AROUSAL. DISCUSSED THAT PATIENT HAS NOT HAD A BM SINCE 01/14/19. SHE STATED THAT SHE DOESN'T GO. UPON CLAIRIFCATION PT STATES THAT SHE DOESN'T GO IN THE HOSPITAL BUT SOON SHE GETS HOME SHE WILL GO. PT WAS ASKED IF SHE IS INTENTIONALLY HOLDING HER BOWELS AND SHE STATED THAT THE DOES NOT HAVE THE URGE TO GO.
[2019-01-22 09:23] VITALS: BP 114/52
--- NOTE | 2019-01-22 11:07 | NUR ---
RECEIVED CALL FROM GRANT FROM [employer] TO INFORM THAT HE WILL BE HERE TOMORROW 01/23/19 AROUND 9:00 - 9:30 TO [facility]. STATES THAT HE WILL NEED AN ADDITIONAL PERSON IN THE ROOM TO ASSIST. FLATWORK ASSEMBLERTIANA PADGETT NOTIFIED.
--- NOTE | 2019-01-22 12:20 | NUR ---
IN TO SEE PATIENT AND CHECK BLOOD GLUCOSE. GLUCOSE IS 154. 3 UNITS REGULAR INSULIN REQUIRED. PER DOCUMENTAION HISTORY, PT WAS GIVEN THREE UNITS REGULAR INSULIN FOR 167 AND GLUCOSE DROPPED TO 14. CONSULTED WITH NATACHA VIERA FOR OK TO HOLD INSULIN. AYLIN AGREED.
[2019-01-22 12:39] VITALS: BP 96/47
--- NOTE | 2019-01-22 17:40 | NUR ---
IN TO CHECK BLOOD GLUCOSE. GLOCOSE CAME BACK 485 AND 510. BYPRODUCT ENGINEER AYLIN NOTIFIED AND 21 UNITS REGULAR INSULIN ADMINISTERED. PT HAS ALSO REMOVED ABDUCTOR PILLOW. PILLOW REPLACED.
[2019-01-22 18:04] VITALS: BP 105/42
--- NOTE | 2019-01-22 19:49 | NUR ---
REPORT GIVEN TO FRANCES MONTIEL. PT RESTING COMFORTABLY IN BED. IV INFILTRATED. ATTEMPTED NEW INSERTION X3 WITH NO SUCCESS. ENDORSED TO FRANCES. TELE MONITOR IN PLACE. PT DENIES CHEST PAIN. PT ON ROOM AIR. NO C/O SOB AND NO DISTRESS NOTED. ABDUCTOR PILLOW REPLACED AGAIN AND PATIENT WAS INSRUCTED TO KEEP PILLOW IN PLACE. ALL QUESTIONS AND CONCERNS ADDRESSED.
--- NOTE | 2019-01-22 19:57 | NUR ---
PT RECIEVED AAO REG RESP NO SOB PT NON COMPLAINT WITH THE ABDUCTION PILLOW KEEP TAKING IT OFF,HL OFF,ABDO IS SOFT WITH ACTIVE BOWEL SOUNDS,BED IN THE LOW POSITION AND LOCKED,KEPT CLEAN AND DRY TO TOUCH,PT ON TELE MONITOR AND IN NSR NO ECTOPY OR CHEST PAIN AT THIS TIME,CALL LIGHT EASY REACHED AND WILL CONTINUE TO MONITOR.
[2019-01-22 22:29] VITALS: BP 120/61
--- NOTE | 2019-01-23 00:08 | NUR ---
PT WAS GIVEN 5 MG PO AMBIEN PO ORDER AND WILL CONTINUE TO MONITOR.
[2019-01-23 05:47] VITALS: BP 97/43
--- NOTE | 2019-01-23 06:11 | NUR ---
HAD A RESTIMNG NIGHT KEEP GETTINH BEREKET FROM THE ABDUCTION PILLOWS AND HANGING LEGS,KEEP EDUCATING PATIENT WHY ITS IMPORTANT TO USE THE ABDUCTION PILLOW,PT NON COMPLIANT,WILL CONTINUE TO MONITOR.
[2019-01-23 06:38] LABS: CALCIUM 9.4 mg/dL (8.5-10.1); CARBON DIOXIDE 26.1 mmol/L (21-32); POTASSIUM SERUM 3.4 mmol/L (3.5-5.1)
--- NOTE | 2019-01-23 07:42 | NUR ---
RECEIVED PT RESTING IN BED. SLEEPING BUT AROUSABLE. RESP EVEN AND UNLABORED ON RA. NO PAIN NOTED. PT'S ABDUCTOR PILLOW NOT IN PLACE, PT NON-COMPLIANT. IVF INFUSING, NO REDNESS OR SWELLING TO IV SITE. HOB ELEVATED. BEDREST. FALL PRECAUTIONS IN PLACE. BED IN LOW POSITION, CALL LIGHT WITHIN REACH. WILL CONTINUE TO MONITOR.
[2019-01-23 08:02] LABS: RED CELL DISTRIBUTION WIDTH 18.5 % (11.5-14.5)
[2019-01-23 08:03] LABS: PLATELET COUNT 578 x10^3mcL (130-400)
--- NOTE | 2019-01-23 09:23 | NUR ---
ORTHO [facility]ACE REP AT BEDSIDE TO APPLY DEVICE TO PT.
[2019-01-23 09:35] VITALS: BP 136/41
[2019-01-23 11:20] LABS: CALCIUM 8.3 mg/dL (8.5-10.1); CARBON DIOXIDE 22.1 mmol/L (21-32); CREATININE SERUM 1.2 mg/dL (0.6-1.0); POTASSIUM SERUM 4.5 mmol/L (3.5-5.1)
--- NOTE | 2019-01-23 11:34 | NUR ---
Follow-up Nutrition Assessment- 219T/A REBECCA OLIVEIRA MR Dx: LT hip pain dislocation Labs: NA 128L, K 3.4L, BG 114H Meds: D50%, humulin, Lipitor, zofran Diet: CCHO PO intake: 58% average (01/22) Weights: 49.8 kg Skin: tear to sacrum Robbie: 17 Edema: none Last BM: 01/13/19 RDN visit (01/23): pt was awake and said that she ate most of her breakfast this morning and has good appetite. She does not have any N/V at this time. Diabetes diet education was provided along with [facility] handout "type 2 DM nutrition therapy". Patient said that she watched what she ate and will continue to make healthy choices after her discharge. Estimated Nutritional Needs Based on actual body weight 49.8 kg Energy: 7620-0604 kcal/d (30-35 kcal/kg-weight gain) Protein: 50-60 g/d (1.0-1.2 g/kg)-maintenance and preservation of lean body mass Fluid: 7591-3014 ml/d (1 ml/kcal-fluid balance) or per doctor Nutrition Diagnosis 1. Inadequate oral intake related to 'fair' appetite as evidenced by documented PO <75%.(improving) Intervention 1. Recommend continuing CCHO diet. 2. Diabetes diet education provided. Monitor/Evaluate Previous goal: cont CCHO diet (met) Goal: PO intake at least 75% of estimated needs Monitor: PO intake, Labs, GI function F/U in 7 days as low risk 01/30
--- NOTE | 2019-01-23 11:34 | NUR ---
1. Recommend continuing [facility] diet. 2. Diabetes diet education provided.
--- NOTE | 2019-01-23 11:39 | NUR ---
CHECKED PT'S BLOOD GLUCOSE = 530, REPEATED = 515. ALSO RECEIVED CALL FROM LAB REGARDING GLUCOSE LEVEL 510. [employer] MADE AWARE. PT AAOX4. WATCHING TV. NO ACUTE DISTRESS. WILL CONTINUE TO MONITOR.
--- NOTE | 2019-01-23 12:15 | NUR ---
SPOKE WITH DR. TOMLIN OVER THE PHONE AND UPDATED HIM REGARDING PATIENT'S HIP BRACE BEING DELIVERED AND WAS AMBULATING WITH PHYSICAL THERAPY. NO NEW ORDERS. WILL CONTINUE TO MONITOR.
[2019-01-23 13:31] LABS: BAND NEUTROPHIL 1 % (0-10); BASOPHIL 0 % (0-2); MONOCYTE 4 % (0-7); SEGMENTED NEUTROPHILS 84 % (37-75); rbc morphology (normal/abnorm) ABNORMAL (NORMAL)
[2019-01-23 13:32] LABS: PLATELET MORPHOLOGY PLATELETS INCREASED
[2019-01-23 14:19] VITALS: BP 100/39
[2019-01-23 16:53] VITALS: BP 108/44
--- NOTE | 2019-01-23 18:41 | NUR ---
PT RESTING IN BED WATCHING TV WHILE LEANING FORWARD. INSTRUCTED PT REGARDING PROPER POSITIONING, PT REFUSED TO REPOSITION. WEARING HIP BRACE AT THIS TIME. MEDICATED FOR LLE PAIN ORDERED. IVF INFUSING, NO REDNESS OR SWELLING. ON AIR MATTRESS. BED IN LOW POSITION, CALL LIGHT WITHIN REACH. WILL ENDORSE TO ONCOMING SHIFT.
--- NOTE | 2019-01-23 19:49 | NUR ---
PT RECIEVED SLEEPING BUT EASILY AROUSABLE,REG RESP NO SOB V/S STABLE,IV INFUSING WELL WITH THE SITE PATENT AND INTACT,PT HAS A BRACE TO THE LT THIGH WITH THE SITE INTACT,BLE EXTRE WITH WEAK PULSES,CALL LIGHT EASY REACHED AND WILL CONTINUE TO MONITOR.
[2019-01-23 21:06] VITALS: BP 110/40
--- NOTE | 2019-01-24 06:17 | NUR ---
PT HAD A RESTING NIGHT SAYS SHE FEELING BETTER TODAY,KEPT CLEAN AN DRY TO TOUCH AND WILL CONTINUE TO MONITOR.
[2019-01-24 06:19] VITALS: BP 102/41
[2019-01-24 06:22] LABS: CALCIUM 8.8 mg/dL (8.5-10.1); CARBON DIOXIDE 23.8 mmol/L (21-32); CREATININE SERUM 1.1 mg/dL (0.6-1.0)
[2019-01-24 07:18] LABS: BASOPHIL % 0.6 % (0-2)
[2019-01-24 07:26] LABS: RED CELL DISTRIBUTION WIDTH 18.8 % (11.5-14.5)
[2019-01-24 07:27] LABS: PLATELET COUNT 569 x10^3mcL (130-400)
--- NOTE | 2019-01-24 07:40 | NUR ---
PT IS AA0X4. DENIES H/A OR DIZZINESS. LUNG SOUNDS CTA. ON R/A. TELE [address] READING NSR. ABDOMEN SOFT, NONTENDER, NONDISTENDED. DENIES N/V. EXCORIATION TO SACRUM COVERED WITH OPTIFOAM DRESSING, CDI. NO S/S OF INFECTION NOTED. TRACE BLE EDEMA. DENIES BLE NUMBNESS OR TINGLING. IVF RUNNING TO LFA. SITE WNL. DENIES PAIN AND DISCOMFORT AT THIS TIME. CALL LIGHT WITHIN REACH. FALL PROTOCOL FOLLOWED. BED IN LOWEST POSTION.
[2019-01-24 08:57] VITALS: BP 104/53
--- NOTE | 2019-01-24 09:09 | NUR ---
DUE MEDS GIVEN. B/P 122/49, HR 63. PT DENIES PAIN AT THIS TIME. PT ENCOURAGED TO USE ABDUCTOR PILLOW. PT REFUSED. EXPLAINED TO PT RISKS AND BENEFITS. PT STILL REFUSHED TO USE PILLOW. FLUID AND ACTIVITY ENCOURGAGED. CALL LIGHT WITHIN REACH.
--- NOTE | 2019-01-24 11:00 | NUR ---
CALLED AND SPOKE TO AND MADE HIM AWARE OF DISCHARGE PLAN TODAY, NEW ORDER RECEIVED OKAY TO D/C HOME WITH HOME HEALTH P.T[facility] AND TO FOLLOW UP WITH IN 1 WEEK. MESSAGE SENT TO [facility] AND SPOKE TO ALEXANDRA(OFFICE RECEPTIONIST) ASSIGNED TO THIS PT AND MADE HER AWARE OF ABOVE. YANDY(N.P.) MADE AWARE OF ABOVE.
--- NOTE | 2019-01-24 12:17 | NUR ---
BS 396, 15 UNITS REG INSULIN GIVEN. PT DENIES PAIN. NO DISTRESS NOTED. CALL LIGHT WITHIN REACH.
[2019-01-24 13:04] VITALS: BP 94/37
--- NOTE | 2019-01-24 13:55 | NUR ---
PT DISCHARGED TO HOME IN NO DISTRESS. D/C INSTRUCTIONS REVIEWED. ALL FORMS SIGNED. ALL QUESTIONS ANSWERED. IV CATH TO RFA REMOVED INTACT. SITE WNL COVERED WITH GAUZE AND BANDAID. TELE 19 REMOVED AND GIVEN TO SENIOR ARCHITECT/DESIGN MANAGER. VS: 98.4, 69, 19, 94/57, 98% ON R/A. PT DENIES PAIN AND DISCOMFORT AT TIME OF DISCHARGE. ALL PERSONAL BELONGINGS TAKEN HOME.
--- NOTE | 2019-01-24 14:49 | NUR ---
PT IS SITTING UP AT BEDSIDE AWAITING RIDE HOME. RESP EVEN AND UNLABORED. NO DISTRESS NOTED. DENIES PAIN. CALL LIGHT WITHIN REACH.
== END 2019-01-24 15:59 | disposition home or self-care (01) | DRG 349 ==
LOC: ED 05:17 → MU 12:21 → DU 12:21 → MU 13:14 → DU 01-17 00:30
PROVIDERS: Emergency Medicine; General Practice; Internal Medicine; ADMIT Family Medicine
PROC: 0SWSXJZ Revision of Synthetic Substitute in Left Hip Joint, Femoral Surface, External Approach (ICD-10-PCS; principal; 2019-01-14)
DX: T84.021A Dislocation of internal left hip prosthesis, initial encounter (principal); N17.0 Acute kidney failure with tubular necrosis; E44.0 Moderate protein-calorie malnutrition; E78.5 Hyperlipidemia, unspecified; E11.65 Type 2 diabetes mellitus with hyperglycemia; I25.5 Ischemic cardiomyopathy; I25.10 Atherosclerotic heart disease of native coronary artery without angina pectoris; I25.2 Old myocardial infarction; Z79.82 Long term (current) use of aspirin; Z79.4 Long term (current) use of insulin; Z95.1 Presence of aortocoronary bypass graft; Z95.5 Presence of coronary angioplasty implant and graft; Z68.1 Body mass index [BMI] 19.9 or less, adult; F17.210 Nicotine dependence, cigarettes, uncomplicated
CPT/HCPCS: 82962; 83880; 97116-GP; 97530-GP; G0500; J1170; J1815; J2250; J2270; J2405; J3010; J3490; J7030; J7040; J7050; Q0092; Q0163

== ENCOUNTER 2019-03-14 07:21 | Emergency (ER) | payer MEDICAID ==
[~2019-03-14] VITALS: Ht 165.1 cm; Wt 54.4 kg
[2019-03-14 07:24] VITALS: Ht 165.1 cm; Wt 54.4 kg
[2019-03-14 08:25] VITALS: BP 140/80
== END 2019-03-14 08:25 | disposition left against medical advice (07) ==
LOC: ED 07:21
DX: E11.649 Type 2 diabetes mellitus with hypoglycemia without coma (principal); G93.41 Metabolic encephalopathy; I10 Essential (primary) hypertension; F17.210 Nicotine dependence, cigarettes, uncomplicated; Z95.1 Presence of aortocoronary bypass graft; Z71.6 Tobacco abuse counseling; Z88.0 Allergy status to penicillin; Z88.5 Allergy status to narcotic agent; Z88.2 Allergy status to sulfonamides; Z88.1 Allergy status to other antibiotic agents
CPT/HCPCS: 82962; 99406

== ENCOUNTER 2019-03-25 16:40 | Emergency (ER) | payer MEDICAID ==
[~2019-03-25] VITALS: Ht 167.6 cm; Wt 59.0 kg
[2019-03-25 16:56] VITALS: Ht 167.6 cm; Wt 59.0 kg
[2019-03-25 19:08] VITALS: BP 130/64
== END 2019-03-25 19:08 | disposition home or self-care (01) ==
LOC: ED 16:40
DX: E11.649 Type 2 diabetes mellitus with hypoglycemia without coma (principal); I10 Essential (primary) hypertension; Z98.890 Other specified postprocedural states; Z90.89 Acquired absence of other organs; Z95.1 Presence of aortocoronary bypass graft; Z88.0 Allergy status to penicillin; Z88.6 Allergy status to analgesic agent; Z88.2 Allergy status to sulfonamides; Z88.1 Allergy status to other antibiotic agents
CPT/HCPCS: 82962; J3490; J7050